=== PATIENT | female | born 1975 | race African-American/Black ===

== ENCOUNTER 2016-07-09 15:43 | Emergency (ER) | payer OTHER ==
[2016-07-09 15:54] VITALS: BP 156/84; PULSE 81; TEMP 98.1; BMI 39.9
--- NOTE | 2016-07-09 16:02 | PDOC ---
History of Present Illness - History of Present Illness Initial Comments: 07/09/16 17:00 The patient is a 41 year old female, with a significant past medical history of migraines, who presents to the emergency department with about 5 days of right lower quadrant pain and heavier than usual menstrual bleeding. She states that during her most recent (4 years ago) she was found to have fibroids, however, during a follow-up ultrasound shortly after giving , the fibroids were said to have resolved. She states her abdominal cramping and bleeding is more severe today than her usual experience with her menstrual cycle. The patient states her Special Procedures Nurse left the country and she is looking for a new Special Procedures Nurse. She denies chest pain, shortness of breath, headache and dizziness. She denies fever, chills, nausea, vomit, diarrhea and constipation. She denies dysuria, frequency, urgency and hematuria. Allergies: NKDA Past surgical history: sinus polyp removal <Alexia Hager - Last Filed: 07/09/16 18:07> <Silver Jacob - Last Filed: 07/09/16 18:42> - General Chief Complaint: Pain Stated Complaint: ABD PAIN Time Seen by Provider: 07/09/16 16:02 Past History <Alexia Hager - Last Filed: 07/09/16 18:07> - Past Medical History Anemia: Yes Asthma: No Cancer: No Cardiac Disorders: No CVA: No COPD: No CHF: No Dementia: No Diabetes: No GI Disorders: No Disorders: No HTN: No Hypercholesterolemia: No Liver Disease: No Suicide Attempt (Hx): No Seizures: No Thyroid Disease: No - Surgical History Abdominal Surgery: Yes (HERNIA SX) Appendectomy: No Cardiac Surgery: No Cholecystectomy: Yes Lung Surgery: No Neurologic Surgery: No Orthopedic Surgery: No - Reproductive History (#): 3 Para: 2 Therapeutic (s) & number: Yes Spontaneous : 0 - Immunization History Immunization Up to Date: Yes - Psycho/Social/Smoking Cessation Hx Anxiety: No Suicidal Ideation: No Smoking Status: No Smoking History: Never smoked Have you smoked in the past 12 months: No Number of Cigarettes Smoked Daily: 0 Information on smoking cessation initiated: No Hx Alcohol Use: No Drug/Substance Use Hx: No Substance Use Type: None Hx Substance Use Treatment: No <Silver Jacob - Last Filed: 07/09/16 18:42> - Past Medical History Allergies/Adverse Reactions: Allergies Allergy/AdvReac Type Severity Reaction Status Date / Time No Known Allergies Allergy Verified 07/09/16 15:51 Home Medications: Ambulatory Orders NK [No Known Home Medication] 12/03/15 Review of Systems - Review of Systems Able to Perform ROS?: Yes Comments:: 07/09/16 17:00 GENERAL/CONSTITUTIONAL: No fever or chills. No weakness. HEAD, EYES, EARS, NOSE AND THROAT: No change in vision. No ear pain or discharge. No sore throat. CARDIOVASCULAR: No chest pain or shortness of breath. RESPIRATORY: No cough, wheezing, or hemoptysis. GASTROINTESTINAL: (+) abdominal cramping. No nausea, vomiting, diarrhea or constipation. GENITOURINARY: No dysuria, frequency, or change in urination. REPRODUCTIVE: (+) heavy menstrual bleeding. MUSCULOSKELETAL: No joint or muscle swelling or pain. No neck or back pain. SKIN: No rash NEUROLOGIC: No headache, vertigo, loss of consciousness, or change in strength/ sensation. ENDOCRINE: No increased thirst. No abnormal weight change. HEMATOLOGIC/LYMPHATIC: No anemia, easy bleeding, or history of blood clots. ALLERGIC/IMMUNOLOGIC: No hives or skin allergy. <Alexia Hager - Last Filed: 07/09/16 18:07> *Physical Exam - Vital Signs Last Vital Signs Temp Pulse Resp BP Pulse Ox 98.1 F 81 18 156/84 100 07/09/16 15:52 07/09/16 15:52 07/09/16 15:52 07/09/16 15:52 07/09/16 15:52 - Physical Exam Comments: 07/09/16 17:01 GENERAL: Awake, alert, and fully oriented, in no acute distress HEAD: No signs of trauma EYES: PERRLA, EOMI, sclera anicteric, conjunctiva clear ENT: Auricles normal inspection, hearing grossly normal, nares patent, oropharynx clear without exudates. Moist mucosa NECK: Normal ROM, supple, no lymphadenopathy, JVD, or masses LUNGS: Breath sounds equal, clear to auscultation bilaterally. No wheezes, and no crackles HEART: Regular rate and rhythm, normal S1 and S2, no murmurs, rubs or gallops ABDOMEN: Soft, nontender, normoactive bowel sounds. No guarding, no rebound. No masses EXTREMITIES: Normal range of motion, no edema. No clubbing or cyanosis. No cords, erythema, or tenderness NEUROLOGICAL: Cranial nerves II through XII grossly intact. Normal speech, normal gait SKIN: Warm, Dry, normal turgor, no rashes or lesions noted. <Alexia Hager - Last Filed: 07/09/16 18:07> - Vital Signs Last Vital Signs Temp Pulse Resp BP Pulse Ox 98.1 F 81 18 156/84 100 07/09/16 15:52 07/09/16 15:52 07/09/16 15:52 07/09/16 15:52 07/09/16 15:52 <Silver Jacob - Last Filed: 07/09/16 18:42> ED Treatment Course - LABORATORY CBC & Chemistry Diagram: 07/09/16 16:40 07/09/16 16:40 - RADIOLOGY Radiograph Interpretation: 07/09/16 18:07 Transvaginal US was read by Dr. Cazares 18:02 Impression: Fibroid uterus. Mild thickening of the endometrial strope ant the fundus measuring 1/6 cm for which a follow-up US in 1st week of menses is needed. <Alexia Hager - Last Filed: 07/09/16 18:07> - LABORATORY CBC & Chemistry Diagram: 07/09/16 16:40 07/09/16 16:40 <Silver Jacob - Last Filed: 07/09/16 18:42> Medical Decision Making - Medical Decision Making 07/09/16 17:01 The patient is a 41 year old female with a PMHx of anemia who presents with abdominal cramping and heavy menstrual bleeding for the past 5 days. I will obtain CBC, CMP, urinalysis, ultrasound and type & screen, to rule out uterine fibroids <Alexia Hager - Last Filed: 07/09/16 18:07> *DC/Admit/Observation/Transfer - Attestations Scribe Attestion: 07/09/16 17:03 Documentation prepared by Alexia Hager, acting as medical hospital sales for Silver Jacob MD <Alexia Hager - Last Filed: 07/09/16 18:07> - Discharge Dispostion Admit: No - Attestations Physician Attestion: 07/09/16 16:02 I, Dr. Silver Jacob, attest that this document has been prepared under my direction and personally reviewed by me in its entirety. I further attest, that it accurately reflects all work, treatment, procedures and medical decision -making performed by me. <Silver Jacob - Last Filed: 07/09/16 18:42> Diagnosis at time of Disposition: Dysfunctional uterine bleeding Uterine leiomyoma Qualifiers: Uterine leiomyoma location: unspecified location Qualified Code(s): D25.9 - Leiomyoma of uterus, unspecified Anemia Qualifiers: Iron deficiency anemia type: chronic blood loss - Discharge Dispostion Disposition: HOME Condition at time of disposition: Good - Referrals Referrals: Chris Durbin [Primary Care Provider] - Michele Flannery MD [Staff Physician] - Katerina Ramirez MD [Staff Physician] - - Patient Instructions Printed Discharge Instructions: Heavy Menstrual Bleeding Additional Instructions: Call Dr. Ramirez or Dr Flannery first thing tomorrow. Return to us if problems. Best- Dr. Silver Jacob
[2016-07-09 17:05] LABS: BASOPHIL 0.4 % (0-2.0); EOSINOPHIL 1.4 % (0-4.5); MCH 20.5 pg (25.7-33.7); MCHC 32.3 g/dl (32.0-36.0); MEAN CELL VOLUME 63.6 fl (80-96); MEAN PLT VOLUME 8.9 fl (7.5-11.1); NEUTROPHILS 66.7 % (42.8-82.8); PLATELET COUNT 321 K/MM3 (134-434); RDW 21.3 % (11.6-15.6)
[2016-07-09 17:23] LABS: ALBUMIN 3.3 g/dl (3.4-5.0); ANION GAP 9 (8-16); BILIRUBIN,TOTAL 0.3 mg/dL (0.2-1.0); CALCIUM 8.9 mg/dL (8.5-10.1); CO2 26 mmol/L (21-32); CREATININE 0.6 mg/dL (0.55-1.02); GLUCOSE,RANDOM 85 mg/dL (74-106); SGOT/AST 10 U/L (15-37); SGPT/ALT 11 U/L (12-78); TOT PROT 7.5 g/dl (6.4-8.2)
[2016-07-09 17:25] LABS: ALK PHOS 103 U/L (45-117)
[2016-07-09 19:44] LABS: HYPOCHROMIA 3+; PLATELET ESTIMATE ADEQUATE (NORMAL)
[2016-07-09 19:45] LABS: ANISOCYTOSIS 2+; MICROCYTOSIS 2+; OVALOCYTES 1+; TARGET CELLS 1+
== END 2016-07-09 19:13 | disposition home or self-care (01) ==
LOC: JER 15:43
DX: N93.8 Other specified abnormal uterine and vaginal bleeding (principal); D25.9 Leiomyoma of uterus, unspecified; D50.0 Iron deficiency anemia secondary to blood loss (chronic)
CPT/HCPCS: 36415; 76830-TC; 80053; 85025; 86850; 86900; 86901; 99282-25

== ENCOUNTER 2017-02-03 18:25 | Emergency (ER) | payer OTHER ==
[2017-02-03 18:30] VITALS: TEMP 98.6; BMI 41.5
[2017-02-03 20:12] LABS: ALBUMIN 3.2 g/dl (3.4-5.0); ANION GAP 6 (8-16); BILIRUBIN,TOTAL 0.3 mg/dL (0.2-1.0); CALCIUM 8.5 mg/dL (8.5-10.1); CO2 27 mmol/L (21-32); CREATININE 0.6 mg/dL (0.55-1.02); GLUCOSE,RANDOM 78 mg/dL (74-106); SGOT/AST 6 U/L (15-37); SGPT/ALT 12 U/L (12-78); TOT PROT 7.5 g/dl (6.4-8.2)
[2017-02-03 20:13] LABS: ALK PHOS 101 U/L (45-117)
[2017-02-03 20:24] LABS: BASOPHIL 0.4 % (0-2.0); EOSINOPHIL 2.1 % (0-4.5); MCH 21.6 pg (25.7-33.7); MCHC 32.4 g/dl (32.0-36.0); MEAN CELL VOLUME 66.5 fl (80-96); MEAN PLT VOLUME 9.1 fl (7.5-11.1); NEUTROPHILS 63.4 % (42.8-82.8); PLATELET COUNT 310 K/MM3 (134-434); RDW 20.1 % (11.6-15.6); WHITE BLOOD COUNT 9.3 K/mm3 (4.0-10.0)
[2017-02-03 21:27] VITALS: BP 154/89; PULSE 84
--- NOTE | 2017-02-03 21:28 | PDOC ---
History of Present Illness - General Chief Complaint: Vaginal Bleeding Stated Complaint: VAGINAL BLEEDING Time Seen by Provider: 02/03/17 18:53 Past History - Past Medical History Allergies/Adverse Reactions: Allergies Allergy/AdvReac Type Severity Reaction Status Date / Time No Known Allergies Allergy Verified 02/03/17 18:30 Home Medications: Ambulatory Orders Ferrous Sulfate 325 mg PO BID 02/03/17 Anemia: Yes Asthma: No Cancer: No Cardiac Disorders: No CVA: No COPD: No CHF: No Dementia: No Diabetes: No GI Disorders: No Disorders: No HTN: No Hypercholesterolemia: No Liver Disease: No Seizures: No Thyroid Disease: No - Surgical History Abdominal Surgery: Yes (HERNIA SX) Appendectomy: No Cardiac Surgery: No Cholecystectomy: Yes Lung Surgery: No Neurologic Surgery: No Orthopedic Surgery: No - Reproductive History (#): 3 Para: 2 Therapeutic (s) & number: Yes Spontaneous : 0 - Immunization History Immunization Up to Date: Yes - Suicide/Smoking/Psychosocial Hx Smoking Status: No Smoking History: Never smoked Have you smoked in the past 12 months: No Number of Cigarettes Smoked Daily: 0 Hx Alcohol Use: No Drug/Substance Use Hx: No Substance Use Type: None Hx Substance Use Treatment: No *Physical Exam - Vital Signs Last Vital Signs Temp Pulse Resp BP Pulse Ox 98.6 F 102 H 20 142/98 100 02/03/17 18:26 02/03/17 18:26 02/03/17 18:26 02/03/17 20:09 02/03/17 18:26 ED Treatment Course - LABORATORY CBC & Chemistry Diagram: 02/03/17 19:00 02/03/17 19:50 - ADDITIONAL ORDERS Additional order review: Laboratory Results 02/03/17 02/03/17 02/03/17 19:50 19:23 19:00 Sodium 139 Potassium 3.6 Chloride 106 Carbon Dioxide 27 Anion Gap 6 L BUN 5 L Creatinine 0.6 Creat Clearance w eGFR > 60 Random Glucose 78 Calcium 8.5 Total Bilirubin 0.3 AST 6 L D ALT 12 Alkaline Phosphatase 101 Total Protein 7.5 Albumin 3.2 L Beta HCG, Quant < 1.0 Blood Type O POSITIVE Antibody Screen Negative 02/03/17 19:00 RBC 4.48 MCV 66.5 L MCHC 32.4 RDW 20.1 H MPV 9.1 Neutrophils % 63.4 Lymphocytes % 24.7 Monocytes % 9.4 Eosinophils % 2.1 Basophils % 0.4 *DC/Admit/Observation/Transfer Diagnosis at time of Disposition: Dysfunctional uterine hemorrhage Anemia Qualifiers: Anemia type: iron deficiency Iron deficiency anemia type: chronic blood loss Qualified Code(s): D50.0 - Iron deficiency anemia secondary to blood loss ( chronic); D50.0 - Iron deficiency anemia secondary to blood loss (chronic) - Discharge Dispostion Disposition: HOME Condition at time of disposition: Stable - Patient Instructions Printed Discharge Instructions: DI for Vaginal Bleeding, DI for Iron Deficiency Anemia-Adult Additional Instructions: please keep your appointment with your preparation center coordinator
[2017-02-03 21:54] LABS: ANISOCYTOSIS 1+; HYPOCHROMIA 2+; PLATELET ESTIMATE ADEQUATE (NORMAL); POLYCHROMASIA 1+
[2017-02-03 21:55] LABS: MACROCYTOSIS 1+; MICROCYTOSIS 2+
--- NOTE | 2017-02-03 22:43 | PDOC ---
History of Present Illness - General History Source: Patient Exam Limitations: No Limitations - History of Present Illness Initial Comments: 02/03/17 22:47 The patient is a 41 year old female with a significant past medical history of anemia (on iron supplements) who presents to the ED with 3 days of vaginal bleeding. The patient reports she got her IUD removed on Saturday by her ROUTE INSPECTOR secondary to having [place] surgery next month. Patient reports vaginal bleeding since having her IUD removed. She states she bleeds through 3 pads an hour. She reports noticing 3 blood clots in her pad earlier today. Patient also reports dizziness associated with present symptoms. Denies fever or chills. Denies abdominal cramping, nausea, vomiting, or diarrhea. Denies chest pain or shortness of breath. Denies dysuria. Denies any other symptoms. <James Alonzo - Last Filed: 02/03/17 22:47> - General History Source: Patient Exam Limitations: No Limitations - History of Present Illness Travel History: No Timing/Duration: reports: changing over time Quality: reports: mild Pain Radiation: reports: no radiation Activities at Onset: reports: none Aggravating Factors: improves with: None Alleviating Factors: improves with: None (pt has complaint of vagnal bleeding that occurred after the removal of her IUD last Saturday) <Nandini Chung - Last Filed: 02/03/17 22:51> - General Chief Complaint: Vaginal Bleeding Stated Complaint: VAGINAL BLEEDING Time Seen by Provider: 02/03/17 18:53 Past History <James Alonzo - Last Filed: 02/03/17 22:47> - Past Medical History Anemia: Yes Asthma: No Cancer: No Cardiac Disorders: No CVA: No COPD: No CHF: No Dementia: No Diabetes: No GI Disorders: No Disorders: No HTN: No Hypercholesterolemia: No Liver Disease: No Seizures: No Thyroid Disease: No - Surgical History Abdominal Surgery: Yes (HERNIA SX) Appendectomy: No Cardiac Surgery: No Cholecystectomy: Yes Lung Surgery: No Neurologic Surgery: No Orthopedic Surgery: No - Reproductive History (#): 3 Para: 2 Therapeutic (s) & number: Yes Spontaneous : 0 - Immunization History Immunization Up to Date: Yes - Suicide/Smoking/Psychosocial Hx Smoking Status: No Smoking History: Never smoked Have you smoked in the past 12 months: No Number of Cigarettes Smoked Daily: 0 Hx Alcohol Use: No Drug/Substance Use Hx: No Substance Use Type: None Hx Substance Use Treatment: No <Nandini Chung - Last Filed: 02/03/17 22:51> - Past Medical History Allergies/Adverse Reactions: Allergies Allergy/AdvReac Type Severity Reaction Status Date / Time No Known Allergies Allergy Verified 02/03/17 18:30 Home Medications: Ambulatory Orders Ferrous Sulfate 325 mg PO BID 02/03/17 Review of Systems - Review of Systems Able to Perform ROS?: Yes Comments:: 02/03/17 22:47 CONSTITUTIONAL: No reported: Fever, Chills, Diaphoresis, Generalized Weakness, Malaise, Loss of Appetite HEENT: No reported: Rhinorrhea, Nasal Congestion, Throat Pain, Throat Swelling, Difficulty Swallowing, Mouth Swelling, Ear Pain, Eye Pain, Visual Changes CARDIOVASCULAR: No reported: Chest Pain, Syncope, Palpitations, Irregular Heart Rate, Lightheadedness, Peripheral Edema RESPIRATORY: No reported: Cough, Shortness of Breath, SOB with Exertion, Orthopnea, Wheezing , Stridor, Hemoptysis GASTROINTESTINAL: No reported: Abdominal pain, Abdominal Distension, Nausea, Vomiting, Diarrhea, Constipation, Melena, Hematochezia GENITOURINARY: + vaginal bleeding No reported: Dysuria, Frequency, Urgency, Hesitancy, Flank Pain, Genital Pain MUSCULOSKELETAL: No reported: Myalgia, Arthralgia, Joint Swelling, Back pain, Neck Pain SKIN: No reported: Rash, Itching, Pallor HEMEATOLOGIC/IMMUNOLOGIC: No reported: Easy Bleeding, Easy Bruising, Lymphadenopathy, Frequent infections ENDOCRINE: No reported: Unexplained Weight Gain, Unexplained Weight Loss, Heat Intolerance , Cold Intolerance NEUROLOGIC: No reported: Headache, Focal Weakness, Paresthesias, Vertigo, Lightheadedness, Unsteady Gait, Seizure, Mental Status Changes, Incontinence PSYCHIATRIC: No reported: Anxiety, Depression All Other Systems: Reviewed and Negative <James Alonzo - Last Filed: 02/03/17 22:47> - Review of Systems Able to Perform ROS?: Yes Is the patient limited Fijian proficient: No Constitutional: No: Symptoms Reported, See HPI, Chills, Diaphoresis, Fever, Loss of Appetite, Malaise, Night Sweats, Weakness, Weight Stable, Unintentional Wgt. Loss, Unexplained wgt Loss, Other HEENTM: No: Symptoms Reported, See HPI, Eye Pain, Blurred Vision, Tearing, Recent change in vision, Double Vision, Cataracts, Ear Pain, Ocular Prothesis, Ear Discharge, Nose Pain, Nose Congestion, Tinnitus, Nose Bleeding, Hearing Loss , Throat Pain, Throat Swelling, Mouth Pain, Dental Problems, Difficulty Swallowing, Mouth Swelling, Other Respiratory: No: Symptoms reported, See HPI, Cough, Orthopnea, Shortness of Breath, SOB with Exertion, SOB at Rest, Stridor, Wheezing, Productive cough, Hemoptysis, Other Cardiac (ROS): No: Symptoms Reported, See HPI, Chest Pain, Edema, Irregular Heart Rate, Lightheadedness, Palpitations, Syncope, Chest Tightness, Other ABD/GI: No: Symptoms Reported, See HPI, Abdominal Distended, Abd. Pain w/ defecation, Blood Streaked Bowels, Constipated, Diarrhea, Difficulty Swallowing , Nausea, Poor Appetite, Poor Fluid Intake, Rectal Bleeding, Vomiting, Indigestion, Abdominal cramping, Tarry Stools, Other : Yes: Other (vaginal bleeding) Musculoskeletal: No: Symptoms Reported, See HPI, Back Pain, Gout, Joint Pain, Joint Swelling, Muscle Pain, Muscle Weakness, Neck Pain, Joint Stiffness, Other Integumentary: No: Symptoms Reported, See HPI, Bruising, Change in Color, Change in Hair/Nails, Dryness, Erythema, Flushing, Lesions, Lumps, Pallor, Pruritus, Rash, Sweating, Other Psychiatric: No: Anxiety, Depression, Frequent Crying, Stressors, Sleep Pattern Change, Emotional Problems, Mood Swings, Change in Appetite, Other <Nandini Chung - Last Filed: 02/03/17 22:51> *Physical Exam - Vital Signs Last Vital Signs Temp Pulse Resp BP Pulse Ox 98.6 F 84 18 154/89 99 02/03/17 18:26 02/03/17 21:26 02/03/17 21:26 02/03/17 21:26 02/03/17 21:26 - Physical Exam Comments: 02/03/17 22:47 GENERAL: Well developed, well nourished. Awake and alert. No acute distress. HEENT: Normocephalic, atraumatic. PERRLA, EOMI. No conjunctival pallor. Sclera are non- icteric. Moist mucous membranes. Oropharynx is clear. NECK: Supple. Full ROM. No JVD. Carotid pulses 2+ and symmetric, without bruits. No thyromegaly. No lymphadenopathy. CARDIOVASCULAR: Regular rate and rhythm. No murmurs, rubs, or gallops. Distal pulses are 2+ and symmetric. PULMONARY: No evidence of respiratory distress. Lungs clear to auscultation bilaterally. No wheezing, rales or rhonchi. ABDOMINAL: Soft. Non-tender. Non-distended. No rebound or guarding. No organomegaly. Normoactive bowel sounds. MUSCULOSKELETAL Normal range of motion at all joints. No bony deformities or tenderness. No CVA tenderness. EXTREMITIES: No cyanosis. No clubbing. No edema. No calf tenderness. VAGINAL: + moderate blood in vaginal vault. No blood clots. Os is closed. SKIN: Warm and dry. Normal capillary refill. No rashes. No jaundice. NEUROLOGICAL: Alert, awake, appropriate. Cranial nerves 2-12 intact. No deficits to light touch and temperature in face, upper extremities and lower extremities. No motor deficits in the in face, upper extremities and lower extremities. Normoreflexic in the upper and lower extremities. Normal speech. Toes are down- going bilaterally. Gait is normal without ataxia. PSYCHIATRIC: Cooperative. Good eye contact. Appropriate mood and affect. <James Alonzo - Last Filed: 02/03/17 22:47> - Vital Signs Last Vital Signs Temp Pulse Resp BP Pulse Ox 98.6 F 84 18 154/89 99 02/03/17 18:26 02/03/17 21:26 02/03/17 21:26 02/03/17 21:26 02/03/17 21:26 - Physical Exam General Appearance: Yes: Nourished, Appropriately Dressed HEENT: positive: Normal Voice Neck: positive: Supple Respiratory/Chest: positive: Normal Breath Sounds Cardiovascular: positive: Regular Rhythm, Regular Rate Female Pelvic Exam: positive: vaginal bleeding (os closed, no clots but there was moderate amt blood in vaginal vault) Gastrointestinal/Abdominal: positive: Soft Musculoskeletal: positive: Normal Inspection Extremity: positive: Normal Inspection Integumentary: positive: Normal Color, Warm Neurologic: positive: Fully Oriented, Alert, Motor Strength 5/5 <Nandini Chung - Last Filed: 02/03/17 22:51> ED Treatment Course - LABORATORY CBC & Chemistry Diagram: 02/03/17 19:00 02/03/17 19:50 - ADDITIONAL ORDERS Additional order review: Laboratory Results 02/03/17 02/03/17 02/03/17 19:50 19:23 19:00 Sodium 139 Potassium 3.6 Chloride 106 Carbon Dioxide 27 Anion Gap 6 L BUN 5 L Creatinine 0.6 Creat Clearance w eGFR > 60 Random Glucose 78 Calcium 8.5 Total Bilirubin 0.3 AST 6 L D ALT 12 Alkaline Phosphatase 101 Total Protein 7.5 Albumin 3.2 L Beta HCG, Quant < 1.0 Blood Type O POSITIVE Antibody Screen Negative 02/03/17 19:00 RBC 4.48 MCV 66.5 L MCHC 32.4 RDW 20.1 H MPV 9.1 Neutrophils % 63.4 Lymphocytes % 24.7 Monocytes % 9.4 Eosinophils % 2.1 Basophils % 0.4 <James Alonzo - Last Filed: 02/03/17 22:47> - LABORATORY CBC & Chemistry Diagram: 02/03/17 19:00 02/03/17 19:50 - ADDITIONAL ORDERS Additional order review: Laboratory Results 02/03/17 02/03/17 02/03/17 19:50 19:23 19:00 Sodium 139 Potassium 3.6 Chloride 106 Carbon Dioxide 27 Anion Gap 6 L BUN 5 L Creatinine 0.6 Creat Clearance w eGFR > 60 Random Glucose 78 Calcium 8.5 Total Bilirubin 0.3 AST 6 L D ALT 12 Alkaline Phosphatase 101 Total Protein 7.5 Albumin 3.2 L Beta HCG, Quant < 1.0 Blood Type O POSITIVE Antibody Screen Negative 02/03/17 19:00 RBC 4.48 MCV 66.5 L MCHC 32.4 RDW 20.1 H MPV 9.1 Neutrophils % 63.4 Lymphocytes % 24.7 Monocytes % 9.4 Eosinophils % 2.1 Basophils % 0.4 <Nandini Chung - Last Filed: 02/03/17 22:51> Medical Decision Making - Medical Decision Making 02/03/17 22:49 spoke w pt and she has a long h/o anemia and tonight s hemoglobin of 9 and hematocrit of 29 is within her usual readings. negative -pt will follow up with her PATTERN KEEPER <Nandini Chung - Last Filed: 02/03/17 22:51> *DC/Admit/Observation/Transfer <James Alonzo - Last Filed: 02/03/17 22:47> <Nandini Chung - Last Filed: 02/03/17 22:51> Diagnosis at time of Disposition: Dysfunctional uterine hemorrhage Anemia Qualifiers: Anemia type: iron deficiency Iron deficiency anemia type: chronic blood loss Qualified Code(s): D50.0 - Iron deficiency anemia secondary to blood loss ( chronic) - Discharge Dispostion Disposition: HOME Condition at time of disposition: Stable - Referrals Referrals: Chris Durbin [Primary Care Provider] - - Patient Instructions Printed Discharge Instructions: DI for Iron Deficiency Anemia-Adult, DI for Vaginal Bleeding Additional Instructions: please keep your appointment with your manual control auger press operator - Post Discharge Activity
== END 2017-02-03 21:28 | disposition home or self-care (01) ==
LOC: JER 18:25
DX: N93.8 Other specified abnormal uterine and vaginal bleeding (principal); D50.0 Iron deficiency anemia secondary to blood loss (chronic)
CPT/HCPCS: 36415; 80053; 84702; 85025; 86850; 86900; 86901; 99282-25

== ENCOUNTER 2018-10-05 13:38 | Emergency (ER) | payer OTHER ==
[2018-10-05 13:55] VITALS: TEMP 99; BMI 41.5
[2018-10-05] MEDS ORDERED: morphine CARPU-JECT 2 MG/1 ML DISP.SYRIN IVPUSH ONE (14:04)
--- NOTE | 2018-10-05 14:16 | PDOC ---
History of Present Illness - General Chief Complaint: Pain Stated Complaint: ABD PAIN Time Seen by Provider: 10/05/18 13:56 History Source: Patient Exam Limitations: No Limitations - History of Present Illness Travel History: No Initial Comments: 10/05/18 14:06 43-year-old female with history of fibroids and fiber removal in 2016 presents to ED with concern of painful menstrual cycle which began on October 02. Patient states has been taking Motrin with no effect and so decided come to the ER today. Has no complaints of dysuria, fever, chills diarrhea recent travel recent illness. Patient states is currently is not anemic since fibroid removal. Timing/Duration: reports: constant Quality: reports: mild, moderate, cramping Abdominal Pain Onset Location: reports: suprapubic Pain Radiation: reports: no radiation Activities at Onset: reports: none Aggravating Factors: improves with: None Alleviating Factors: improves with: None Past History - Travel Traveled outside of the country in the last 30 days: No Close contact w/someone who was outside of country & ill: No - Past Medical History Allergies/Adverse Reactions: Allergies Allergy/AdvReac Type Severity Reaction Status Date / Time No Known Allergies Allergy Verified 10/05/18 13:52 Home Medications: Ambulatory Orders Ferrous Sulfate 325 mg PO BID 02/03/17 Anemia: Yes Asthma: No Cancer: No Cardiac Disorders: No CVA: No COPD: No CHF: No Dementia: No Diabetes: No GI Disorders: No Disorders: No HTN: No Hypercholesterolemia: No Liver Disease: No Seizures: No Thyroid Disease: No - Surgical History Abdominal Surgery: Yes (HERNIA SX) Appendectomy: No Cardiac Surgery: No Cholecystectomy: Yes Lung Surgery: No Neurologic Surgery: No Orthopedic Surgery: No - Reproductive History (#): 3 Para: 2 Therapeutic (s) & number: Yes Spontaneous : 0 - Immunization History Immunization Up to Date: Yes - Suicide/Smoking/Psychosocial Hx Smoking Status: No Smoking History: Never smoked Have you smoked in the past 12 months: No Number of Cigarettes Smoked Daily: 0 Information on smoking cessation initiated: No Hx Alcohol Use: No Drug/Substance Use Hx: No Substance Use Type: None Hx Substance Use Treatment: No Patient Lives Alone: No Lives with/in: spouse/SO Review of Systems - Review of Systems Able to Perform ROS?: Yes Constitutional: No: Symptoms Reported HEENTM: No: Symptoms Reported Respiratory: No: Symptoms reported Cardiac (ROS): No: Symptoms Reported ABD/GI: Yes: Abdominal cramping : Yes: Discharge (bleeding w/ clots) Musculoskeletal: No: Symptoms Reported Integumentary: No: Symptoms Reported Neurological: No: Symptoms reported Hematologic/Lymphatic: No: Symptoms Reported *Physical Exam - Vital Signs Last Vital Signs Temp Pulse Resp BP Pulse Ox 99 F 94 H 18 129/91 97 10/05/18 13:52 10/05/18 13:52 10/05/18 13:52 10/05/18 13:52 10/05/18 13:52 - Physical Exam General Appearance: Yes: Nourished, Appropriately Dressed. No: Apparent Distress HEENT: negative: Pale Conjunctivae Respiratory/Chest: positive: Lungs Clear, Normal Breath Sounds. negative: Respiratory Distress, Accessory Muscle Use Cardiovascular: positive: Regular Rhythm, Regular Rate. negative: Murmur Female Pelvic Exam: positive: vaginal bleeding (dark red with small clots) Gastrointestinal/Abdominal: positive: Normal Bowel Sounds, Soft, Tenderness ( midsuprapubic) Musculoskeletal: negative: CVA Tenderness Extremity: positive: Normal Inspection Integumentary: positive: Normal Color, Warm, Moist Neurologic: positive: Motor Strength 5/5 (ambulatory) ED Treatment Course - LABORATORY CBC & Chemistry Diagram: 10/05/18 14:22 10/05/18 14:22 - RADIOLOGY Radiology Studies Ordered: Category Date Time Status TRANSVAGINAL ULTRASOUND US [US] Stat Ultrasound 10/05/18 13:57 Ordered Medical Decision Making - Medical Decision Making 10/05/18 14:09 CC: low abd pain with heavy vag bleeding/clots x 3 days. Hx fibroids with removal in 2017. ANVILSMITH has discussed hysterctomy due to heavy and painful menstrual cycle Exam: lower mid suprapubic tenderness with vag bleeding and clots Plan: labs, urine, ms04, and u/s 10/05/18 15:46 Laboratory Tests 10/05/18 10/05/18 10/05/18 14:22 14:22 14:22 WBC 7.9 Hgb 8.1 L Hct 26.0 L Plt Count 383 D Sodium 140 Potassium 3.8 Chloride 109 H Carbon Dioxide 28 Anion Gap 3 L BUN 6.2 L Creatinine 0.7 Random Glucose 91 AST 11 L ALT 12 L Urine Blood 3+ H Ur Leukocyte Esterase Trace Urine WBC (Auto) 5 Urine HCG, Qual Negative Pt states mod relief with morphine. Pt states will start her iron tablets since she stopped taking them about 6 months ago because of constipation and abd pain when taking it 10/05/18 15:53 Ultrasound shows no Leoimyoma as seen previously from June 2016 ultrasound. The endometrial slightly thickened at 0.9 cm which may be on physiological basis. Patient is currently menstrating. Otherwise no free intraperitoneal fluid *DC/Admit/Observation/Transfer Diagnosis at time of Disposition: Dysfunctional uterine hemorrhage - Discharge Dispostion Disposition: HOME Condition at time of disposition: Improved - Referrals Referrals: Chris Durbin [Primary Care Provider] - - Patient Instructions Printed Discharge Instructions: DI for Vaginal Bleeding Additional Instructions: Please follow up with your ANVILSMITH. Start your Iron pills once a day. Take percocet as needed for pain - Post Discharge Activity
[2018-10-05] MEDS ORDERED: MORPHINE SULFATE 2 MG/ML VIAL ONE (14:25)
[2018-10-05 14:44] LABS: BASO % 0.8 % (0-2.0); EOS % 1.3 % (0-4.5); HEMOGLOBIN 8.1 GM/dL (10.7-15.3); LYMPH % 19.9 % (8-40); MCHC 31.3 g/dl (32.0-36.0); MEAN PLT VOLUME 8.5 fl (7.5-11.1); MONO % 9.1 % (3.8-10.2); NEUT % 68.9 % (42.8-82.8); PLATELET COUNT 383 K/MM3 (134-434); RBC 4.41 M/mm3 (3.60-5.2); RDW 20.4 % (11.6-15.6); WHITE BLOOD COUNT 7.9 K/mm3 (4.0-10.0)
[2018-10-05 15:01] LABS: MCH 18.5 pg (25.7-33.7)
[2018-10-05 15:02] LABS: ALBUMIN 3.5 g/dl (3.4-5.0); BILIRUBIN,TOTAL 0.4 mg/dL (0.2-1); BLOOD UREA NITROGEN 6.2 mg/dL (7-18); CALCIUM 8.8 mg/dL (8.5-10.1); CREATININE 0.7 mg/dL (0.55-1.3); POTASSIUM 3.8 mmol/L (3.5-5.1)
[2018-10-05 15:25] LABS: HCG,QUALITATIVE URINE Negative
[2018-10-05 15:31] LABS: EPI CELLS 2.2 /HPF (0-5/HPF); HYALINE CASTS 3 /lpf (0-8); URINE APPEARANCE CLEAR; URINE BACTERIA 3.4 /hpf (NEGATIVE); URINE BILIRUBIN NEGATIVE (NEGATIVE); URINE COLOR YELLOW; URINE GLUCOSE (UA) NEGATIVE (NEGATIVE); URINE KETONE NEGATIVE (NEGATIVE); URINE LEUK ESTERASE TRACE (NEGATIVE); URINE NITRITE NEGATIVE (NEGATIVE); URINE PROTEIN NEGATIVE (NEGATIVE); URINE RBC 869 /hpf (0-4); URINE UROBILINOGEN 0.2 mg/dL (0.2-1.0); URINE WBC 5 /hpf (0-5)
[2018-10-05 16:30] VITALS: BP 132/87; PULSE 88
[2018-10-05 17:43] LABS: ANISOCYTOSIS 1+
[2018-10-05 17:44] LABS: MACROCYTOSIS 1+; PLATELET ESTIMATE ADEQUATE
== END 2018-10-05 16:30 | disposition home or self-care (01) ==
LOC: JER 13:38
PROC: 3E033NZ Introduction of Analgesics, Hypnotics, Sedatives into Peripheral Vein, Percutaneous Approach (ICD-10-PCS; principal; 2018-10-05)
DX: N93.8 Other specified abnormal uterine and vaginal bleeding (principal); N94.6 Dysmenorrhea, unspecified
CPT/HCPCS: 36415; 76830-TC; 80053; 81003; 84703; 85025; 96374; 99283-25

== ENCOUNTER 2018-10-31 01:05 | Emergency (ER) | payer OTHER ==
[2018-10-31 01:34] VITALS: BP 148/79; PULSE 88; TEMP 99.6; BMI 38.9
--- NOTE | 2018-10-31 02:03 | PDOC ---
History of Present Illness - General Chief Complaint: Pain, Acute Stated Complaint: CRAMPS Time Seen by Provider: 10/31/18 02:01 - History of Present Illness Initial Comments: 43yo F with PMH of fibroids, fibromyalgia, anemia, herniated disc presenting with RLQ pain x 2 days. Patient states this is consistent with her fibroid pain. She has this same pain every month, always while she is menstruating. She rates it 8/10 and describes it as "sharp" and "crampy". No nausea or vomiting. Last bowel movement was today and was a loose brown stool without blood. Patient typically has loose stools when she is menstruating. History of surgeries include fibroid removal in 2017 and . LMP started yesterday for which she has been using about three regular-size pads per day. Patient recently changed to a new locomotive engineer electric group because her former locomotive engineer electric retired and voices displeasure with her current care. Multiple family members have undergone hysterectomies for pain related to fibroids. No fevers, chills, chest pain, or shortness of breath. PCP: Dr. Durbin drama director: does not remember the name Past History - Past Medical History Allergies/Adverse Reactions: Allergies Allergy/AdvReac Type Severity Reaction Status Date / Time No Known Allergies Allergy Verified 10/31/18 01:31 Home Medications: Ambulatory Orders NK [No Known Home Medication] 10/31/18 Anemia: Yes Asthma: No Cancer: No Cardiac Disorders: No CVA: No COPD: No CHF: No Dementia: No Diabetes: No GI Disorders: No Disorders: No HTN: No Hypercholesterolemia: No Liver Disease: No Seizures: No Thyroid Disease: No - Surgical History Abdominal Surgery: Yes (HERNIA SX) Appendectomy: No Cardiac Surgery: No Cholecystectomy: Yes Lung Surgery: No Neurologic Surgery: No Orthopedic Surgery: No - Reproductive History (#): 3 Para: 2 Therapeutic (s) & number: Yes Spontaneous : 0 - Immunization History Immunization Up to Date: Yes - Suicide/Smoking/Psychosocial Hx Smoking Status: No Smoking History: Never smoked Have you smoked in the past 12 months: No Number of Cigarettes Smoked Daily: 0 Information on smoking cessation initiated: No Hx Alcohol Use: No Drug/Substance Use Hx: No Substance Use Type: None Hx Substance Use Treatment: No Review of Systems - Review of Systems Comments:: Constitutional: no fever, no chills HEENT: no throat pain, no dysphagia Cardiovascular: no chest pain, no palpitations Respiratory: no cough, no shortness of breath Gastrointestinal: +abdominal pain, no nausea Genitourinary: no dysuria, no frequency Musculoskeletal: no myalgia, no arthralgia Skin: no rash, no itching Neurologic: no headache, no weakness *Physical Exam - Vital Signs Last Vital Signs Temp Pulse Resp BP Pulse Ox 99.6 F 88 18 148/79 99 10/31/18 01:31 10/31/18 01:31 10/31/18 01:31 10/31/18 01:10/31/18 01:31 - Physical Exam Comments: General: Awake, alert, and fully oriented, anxious, tearful during history- taking Head: No signs of trauma Eyes: EOMI, sclera anicteric ENT: Moist mucus membranes Neck: Normal ROM, supple Lungs: Lungs clear, Normal breath sounds Cardio: Regular rhythm, S1 and S2 present Abdomen: Tender to palpation in the RLQ. No guarding, no rebound, no masses Extremities: Normal range of motion, Distal pulses present SKIN: Warm, Dry, normal turgor Neurologic: Cranial nerves II through XII grossly intact. Normal speech ED Treatment Course - LABORATORY CBC & Chemistry Diagram: 10/31/18 03:40 10/31/18 03:40 Medical Decision Making - Medical Decision Making 43yo F with PMH of fibroids, fibromyalgia, anemia, herniated disc presenting with RLQ pain x 2 days. DDX including but not limited to fibroids, appendicitis, UTI, pyelonephritis, nephrolithiasis Labs, CTAP Ofirmev, Fluids 10/31/18 02:02 CBC WBC 10.1 K/mm3 (4.0-10.0) H 10/31/18 03:40 RBC 4.74 M/mm3 (3.60-5.2) 10/31/18 03:40 Hgb 9.0 GM/dL (10.7-15.3) L 10/31/18 03:40 Hct 28.8 % (32.4-45.2) L 10/31/18 03:40 MCV 60.8 fl (80-96) L 10/31/18 03:40 MCH 18.9 pg (25.7-33.7) L 10/31/18 03:40 MCHC 31.1 g/dl (32.0-36.0) L 10/31/18 03:40 RDW 21.1 % (11.6-15.6) H 10/31/18 03:40 Plt Count 337 K/MM3 (134-434) 10/31/18 03:40 MPV 9.1 fl (7.5-11.1) 10/31/18 03:40 Absolute Neuts (auto) 6.7 K/mm3 (1.5-8.0) 10/31/18 03:40 Neutrophils % 66.6 % (42.8-82.8) 10/31/18 03:40 Lymphocytes % 21.9 % (8-40) 10/31/18 03:40 Monocytes % 9.9 % (3.8-10.2) 10/31/18 03:40 Eosinophils % 1.2 % (0-4.5) 10/31/18 03:40 Basophils % 0.4 % (0-2.0) 10/31/18 03:40 Nucleated RBC % 0 % (0-0) 10/31/18 03:40 Mild leukocytosis Anemia, hgb at patient's baseline CMP Sodium 140 mmol/L (136-145) 10/31/18 03:40 Potassium 3.6 mmol/L (3.5-5.1) 10/31/18 03:40 Chloride 105 mmol/L (98-107) 10/31/18 03:40 Carbon Dioxide 28 mmol/L (21-32) 10/31/18 03:40 Anion Gap 7 MMOL/L (8-16) L 10/31/18 03:40 BUN 5.0 mg/dL (7-18) L 10/31/18 03:40 Creatinine 0.7 mg/dL (0.55-1.3) 10/31/18 03:40 Est GFR (CKD-EPI)AfAm 123.86 10/31/18 03:40 Est GFR (CKD-EPI)NonAf 106.87 10/31/18 03:40 Random Glucose 98 mg/dL (74-106) 10/31/18 03:40 Calcium 9.0 mg/dL (8.5-10.1) 10/31/18 03:40 Total Bilirubin 0.3 mg/dL (0.2-1) 10/31/18 03:40 AST 13 U/L (15-37) L 10/31/18 03:40 ALT 13 U/L (13-61) 10/31/18 03:40 Alkaline Phosphatase 98 U/L (45-117) 10/31/18 03:40 Total Protein 8.2 g/dl (6.4-8.2) 10/31/18 03:40 Albumin 3.6 g/dl (3.4-5.0) 10/31/18 03:40 Electrolytes unremarkable Cr normal UA with 3+ blood. Patient is currently menstruating. Pain is improved, now rated 6/10. CTAP: "No bowel obstruction, colitis, diverticulitis, free fluid or free air. Appendix not seen. Unremarkable pancreas and kidneys. Cholecystectomy. Minimal splenomegaly. Enlarged leiomyomatous uterus." 10/31/18 06:27 Patient's pain is likely due to her leiomyomas that become painful in accordance with hormonal changes. She would likely benefit from hysterectomy which can be performed on an outpatient basis. Patient discharged with locomotive engineer electric referral *DC/Admit/Observation/Transfer Diagnosis at time of Disposition: Uterine fibroid Qualifiers: Uterine leiomyoma location: unspecified location Qualified Code(s): D25.9 - Leiomyoma of uterus, unspecified - Discharge Dispostion Disposition: HOME Condition at time of disposition: Improved - Referrals Referrals: Chris Durbin [Primary Care Provider] - Kori Granados MD [Staff Physician] - - Patient Instructions Printed Discharge Instructions: DI for Uterine Fibroids Additional Instructions: You came into the ED for abdominal pain. Labs and CT imaging did not indicate acute pathology We have referred you to an locomotive engineer electric specialist. Call and make an appointment tomorrow morning. Your workup is not complete until you do so. You can take over the counter motrin for pain. Follow the instructions on the medication bottle. Immediate medical attention is required if you develop: worsening pain, high fevers, persistent nausea, vomiting, or any new or concerning symptoms. If you think you are having an emergency, call for emergency medical services or present to the emergency department right away. - Post Discharge Activity
[2018-10-31] MEDS ORDERED: ACETAMINOPHEN 1000 MG/100 ML VIAL (NON FORMULARY) IVPB ONE (02:54)
[2018-10-31] MEDS ORDERED: SODIUM CHLORIDE 1,000 ML IV STA (02:54)
[2018-10-31] MEDS ORDERED: ACETAMINOPHEN INJECTION 100 ML IVPB ONE (03:08)
[2018-10-31 03:37] LABS: EPI CELLS 3.3 /HPF (0-5/HPF); HYALINE CASTS 10 /lpf (0-8); URINE APPEARANCE CLOUDY; URINE BACTERIA 15.7 /hpf (NEGATIVE); URINE BILIRUBIN NEGATIVE (NEGATIVE); URINE COLOR RED; URINE GLUCOSE (UA) NEGATIVE (NEGATIVE); URINE KETONE NEGATIVE (NEGATIVE); URINE LEUK ESTERASE 2+ (NEGATIVE); URINE NITRITE NEGATIVE (NEGATIVE); URINE PROTEIN 1+ (NEGATIVE); URINE RBC 4161 /hpf (0-4); URINE UROBILINOGEN 0.2 mg/dL (0.2-1.0); URINE WBC 34 /hpf (0-5)
--- NOTE | 2018-10-31 03:39 | PDOC ---
Attending Attestation - Resident Resident Name: Wandy Lopez - ED Attending Attestation I have performed the following: I have examined & evaluated the patient, The case was reviewed & discussed with the resident, I agree w/resident's findings & plan, Exceptions are as noted - HPI HPI: 10/31/18 07:03 43F with RLQ px for 2 days. Px is sharp, cramping, 8/10, no associated symptoms. - Physicial Exam PE: 10/31/18 07:04 Benign pelvic exam - Medical Decision Making 10/31/18 07:04 RLQ point tenderness, pt states she has had similar pain in the past that was attributed to fibroids will need to eval for appy f/u labs ct ap Imaging w/o acute pathology dc will f/u with her rotor plate washer
[2018-10-31 04:34] LABS: BASO % 0.4 % (0-2.0); EOS % 1.2 % (0-4.5); HEMATOCRIT 28.8 % (32.4-45.2); LYMPH % 21.9 % (8-40); MCHC 31.1 g/dl (32.0-36.0); MEAN CELL VOLUME 60.8 fl (80-96); MEAN PLT VOLUME 9.1 fl (7.5-11.1); MONO % 9.9 % (3.8-10.2); NEUT % 66.6 % (42.8-82.8); PLATELET COUNT 337 K/MM3 (134-434); RBC 4.74 M/mm3 (3.60-5.2); RDW 21.1 % (11.6-15.6); WHITE BLOOD COUNT 10.1 K/mm3 (4.0-10.0)
[2018-10-31 04:39] LABS: MCH 18.9 pg (25.7-33.7)
[2018-10-31 05:05] LABS: ALBUMIN 3.6 g/dl (3.4-5.0); BILIRUBIN,TOTAL 0.3 mg/dL (0.2-1); CREATININE 0.7 mg/dL (0.55-1.3); POTASSIUM 3.6 mmol/L (3.5-5.1); TOT PROT 8.2 g/dl (6.4-8.2)
== END 2018-10-31 06:51 | disposition home or self-care (01) ==
LOC: JER 01:05
PROC: 3E033NZ Introduction of Analgesics, Hypnotics, Sedatives into Peripheral Vein, Percutaneous Approach (ICD-10-PCS; principal; 2018-10-31)
DX: D25.9 Leiomyoma of uterus, unspecified (principal)
CPT/HCPCS: 36415; 74177-TC; 80053; 81003; 84703; 85025; 87086; 96374; 99283-25; J0131; J7030

== ENCOUNTER 2019-01-26 10:55 | Emergency (ER) | payer OTHER ==
[2019-01-26 11:03] VITALS: TEMP 97.8; BMI 44.2
--- NOTE | 2019-01-26 11:16 | PDOC ---
History of Present Illness - General Chief Complaint: Vaginal Bleeding Stated Complaint: HEAVY BLEEDING - History of Present Illness Initial Comments: The pt is a 43F with PMH of fibroids, fibromyalgia, anemia, herniated disc on day 4 of her menses who presents for pelvic cramping that is not alleviated by Ibuprofen, Tylenol, or Tramadol. She last took something for her pain at 0700. She reports associated nausea but denies vomiting, falls, chest pain, trouble breathing, or fevers. 01/26/19 11:16 Past History - Past Medical History Allergies/Adverse Reactions: Allergies Allergy/AdvReac Type Severity Reaction Status Date / Time No Known Allergies Allergy Verified 10/31/18 01:31 Home Medications: Ambulatory Orders Naproxen 500 mg PO BID PRN #12 tablet 01/26/19 Anemia: Yes Asthma: No Cancer: No Cardiac Disorders: No CVA: No COPD: No CHF: No Dementia: No Diabetes: No GI Disorders: No Disorders: No HTN: No Hypercholesterolemia: No Liver Disease: No Seizures: No Thyroid Disease: No Other medical history: endometreoisis - uterine fibroids - Surgical History Abdominal Surgery: Yes (HERNIA SX) Appendectomy: No Cardiac Surgery: No Cholecystectomy: Yes Lung Surgery: No Neurologic Surgery: No Orthopedic Surgery: No - Reproductive History (#): 3 Para: 2 Therapeutic (s) & number: Yes Spontaneous : 0 - Immunization History Immunization Up to Date: Yes - Psycho Social/Smoking Cessation Hx Smoking Status: No Smoking History: Never smoked Have you smoked in the past 12 months: No Number of Cigarettes Smoked Daily: 0 Hx Alcohol Use: No Drug/Substance Use Hx: No Substance Use Type: None Hx Substance Use Treatment: No Review of Systems - Review of Systems Able to Perform ROS?: Yes Comments:: GENERAL/CONSTITUTIONAL: No fever or chills. No weakness HEAD, EYES, EARS, NOSE AND THROAT: No change in vision. No change in hearing. No sore throat CARDIOVASCULAR: No chest pain or shortness of breath RESPIRATORY: Denies cough, hemoptysis GASTROINTESTINAL: No nausea, vomiting, diarrhea or constipation GENITOURINARY: No dysuria, frequency, or change in urination MUSCULOSKELETAL: No joint or muscle swelling or pain. No neck or back pain SKIN: No rash NEUROLOGIC: No headache, vertigo, loss of consciousness, or change in strength/ sensation ENDOCRINE: No increased thirst. No abnormal weight change HEMATOLOGIC/LYMPHATIC: +history of menorrhagia and anemia ALLERGIC/IMMUNOLOGIC: No hives or skin allergy 01/26/19 11:16 Is the patient limited Swedish proficient: No *Physical Exam - Vital Signs Last Vital Signs Temp Pulse Resp BP Pulse Ox 97.8 F 105 H 17 140/95 96 01/26/19 11:00 01/26/19 11:00 01/26/19 11:00 01/26/19 11:00 01/26/19 11:00 - Physical Exam Comments: GENERAL: Awake, alert, and oriented to person/place/time, in no acute distress HEAD: No signs of trauma, normocephalic, atraumatic EYES: PERRLA, EOMI, sclera anicteric, conjunctiva clear ENT: Hearing grossly normal, nares patent, oropharynx clear without exudates. Moist mucosa LUNGS: No distress, speaks in full sentences, clear to auscultation bilaterally HEART: Regular rate and rhythm, normal S1 and S2, no murmurs appreciated, peripheral pulses normal and equal bilaterally ABDOMEN: Soft, protuberant, NTTP, normoactive bowel sounds. No guarding, no rebound EXTREMITIES: Normal inspection, Normal range of motion, no edema. No clubbing or cyanosis_ NEUROLOGICAL: Cranial nerves II through XII grossly intact. Normal speech, no focal sensorimotor deficits SKIN: Warm, Dry 01/26/19 11:16 ED Treatment Course - LABORATORY CBC & Chemistry Diagram: 01/26/19 14:15 01/26/19 14:15 Medical Decision Making - Medical Decision Making The pt is a 43F with PMH of fibroids, fibromyalgia, anemia, herniated disc on day 4 of her menses who presents for pelvic cramping. Pt refused pelvic exam and US ED Course CMP, CBC Ofirmev and Zofran for symptomatic relief 01/26/19 11:34 Labs pending 01/26/19 14:36 Pt feels improved at this time WBC 13.4, afebrile and non-tachycardic Lytes unremarkable No ANANYA LFTs wnl serum preg pending 01/26/19 14:55 Serum preg neg Plan for D/C w/ PCP/OBGYN f/u Rx for Naproxen sent to pt's pharmacy Discharge instructions and return precautions given Pt in agreement and verbalized understanding Dispo: home 01/26/19 15:42 Discharge - Discharge Information Problems reviewed: Yes Clinical Impression/Diagnosis: Dysmenorrhea Condition: Stable Disposition: HOME - Admission No - Additional Discharge Information Prescriptions: Naproxen 500 mg PO BID PRN #12 tablet PRN Reason: Pain - Follow up/Referral Referrals: Chris Durbin [Primary Care Provider] - - Patient Discharge Instructions Patient Printed Discharge Instructions: DI for Dysmenorrhea Additional Instructions: You were seen in the Emergency Department for evaluation of dysmenorrhea. Your hemoglobin was 9.1. The remainder of your labs were unremarkable. Maintain follow up with your OBGYN and primary care provider. For pain you may take Tylenol 650mg every 6 hours and Ibuprofen 600mg every 6-8 hours, alternating them each time. Return to the Emergency Department if you develop fevers, chest pain, trouble breathing, worsening pain, change in sensation, worsening symptoms, or any new/ concerning symptoms. - Post Discharge Activity
[2019-01-26] MEDS ORDERED: ONDANSETRON 4 MG/2 ML VIAL IVPUSH ONE (11:32)
[2019-01-26] MEDS ORDERED: ACETAMINOPHEN 1000 MG/100 ML VIAL (NON FORMULARY) IVPB ONE (11:32)
--- NOTE | 2019-01-26 12:34 | PDOC ---
Attending Attestation - Resident Resident Name: Bertram Carrero - ED Attending Attestation I have performed the following: I have examined & evaluated the patient, The case was reviewed & discussed with the resident, I agree w/resident's findings & plan, Exceptions are as noted - HPI HPI: 01/26/19 12:31 Ms. Tran is a 43-year-old female with a history of endometriosis, fibroids, fibromyalgia. Patient is currently on day 4 of her menses, presents with pelvic cramping. Patient has taken ibuprofen, tramadol with little improvement. No nausea or vomiting No fever or chills - Physicial Exam PE: 01/26/19 12:32 GENERAL: The patient is in no acute distress. ENT: Moist mucous membranes. NECK: Normal range of motion LUNGS: Breath sounds equal, clear to auscultation bilaterally. No wheezes, and no crackles. HEART:Regular rate and rhythm, normal S1 and S2 without murmur, rub or gallop. ABDOMEN: Soft, lower abdominal tenderness to palpation PELVIC: deferred by patient EXTREMITIES: Normal range of motion, no edema. NEUROLOGICAL: Cranial nerves II through XII grossly intact. Normal speech. No focal neurological deficits. SKIN: Warm, Dry, normal turgor, no rashes or lesions noted. - Medical Decision Making 01/26/19 12:32 43-year-old female presenting to the emergency department with a complaint of dysmenorrhea in the setting of a history of fibroids as well as endometriosis. Patient refusing pelvic examination. Differential diagnosis includes but is not limited to: Endometriosis, degenerating fibroid, ovarian torsion, ruptured ovarian cyst We will do: Basic labs (patient has a history of anemia, hemoglobin generally 7, will be sure this is stable) Transvaginal ultrasound Analgesia Reassess Pt refused TV US Pain improved Will discharge to home Return to the ER for any other concerns or complaints
[2019-01-26] MEDS ORDERED: SODIUM CHLORIDE 0.9% 500 ML INFUS.BAG IV ONE (13:16)
[2019-01-26] MEDS ORDERED: ACETAMINOPHEN INJECTION 100 ML IVPB ONE (13:19)
[2019-01-26] MEDS ORDERED: ONDANSETRON 4 MG/2 ML VIAL ONE (13:19)
[2019-01-26 14:34] LABS: BASO % 0.2 % (0-2.0); EOS % 0.1 % (0-4.5); HEMATOCRIT 29.3 % (32.4-45.2); HEMOGLOBIN 9.1 GM/dL (10.7-15.3); LYMPH % 10.8 % (8-40); MEAN CELL VOLUME 59.5 fl (80-96); MEAN PLT VOLUME 9.2 fl (7.5-11.1); MONO % 6.5 % (3.8-10.2); NEUT % 82.4 % (42.8-82.8); PLATELET COUNT 432 K/MM3 (134-434); RBC 4.93 M/mm3 (3.60-5.2); RDW 21.4 % (11.6-15.6); WHITE BLOOD COUNT 13.4 K/mm3 (4.0-10.0)
[2019-01-26 14:37] LABS: MCH 18.4 pg (25.7-33.7)
[2019-01-26 14:52] LABS: ALBUMIN 3.7 g/dl (3.4-5.0); BILIRUBIN,TOTAL 0.5 mg/dL (0.2-1); BLOOD UREA NITROGEN 5.7 mg/dL (7-18); CALCIUM 9.4 mg/dL (8.5-10.1); CREATININE 0.7 mg/dL (0.55-1.3); POTASSIUM 4.3 mmol/L (3.5-5.1); TOT PROT 8.9 g/dl (6.4-8.2)
[2019-01-26 15:19] LABS: ANISOCYTOSIS 2+; MACROCYTOSIS 0; PLATELET ESTIMATE NORMAL; TARGET CELLS 1+; TEAR DROP CELLS 1+
[2019-01-26 18:09] VITALS: BP 117/74; PULSE 82
== END 2019-01-26 16:30 | disposition home or self-care (01) ==
LOC: JER 10:55
PROC: 3E033NZ Introduction of Analgesics, Hypnotics, Sedatives into Peripheral Vein, Percutaneous Approach (ICD-10-PCS; principal; 2019-01-26)
PROC: 3E033GC Introduction of Other Therapeutic Substance into Peripheral Vein, Percutaneous Approach (ICD-10-PCS; 2019-01-26)
DX: N94.4 Primary dysmenorrhea (principal); Z86.2 Personal history of diseases of the blood and blood-forming organs and certain disorders involving the immune mechanism; D64.9 Anemia, unspecified; M79.7 Fibromyalgia
CPT/HCPCS: 36415; 80053; 84703; 85025; 96374; 96375; 99283-25; J0131

== ENCOUNTER 2020-07-09 09:40 | Emergency (ER) | payer OTHER ==
[2020-07-09 09:46] VITALS: BP 142/84; PULSE 120; TEMP 97.8; BMI 41.5
[2020-07-09] MEDS ORDERED: SODIUM CHLORIDE 1,000 ML IV STA (10:22)
[2020-07-09] MEDS ORDERED: LIDOCAINE 5% TOPICAL PATCH TP ONE (10:22)
[2020-07-09] MEDS ORDERED: ONDANSETRON 4 MG/2 ML VIAL IVPUSH ONE (10:22)
[2020-07-09] MEDS ORDERED: ACETAMINOPHEN 1000 MG/100 ML VIAL (NON FORMULARY) IVPB ONE (10:22)
[2020-07-09] MEDS ORDERED: ACETAMINOPHEN INJECTION 100 ML IVPB ONE (11:02)
[2020-07-09] MEDS ORDERED: ONDANSETRON 4 MG/2 ML VIAL ONE (11:03)
[2020-07-09 11:43] LABS: INR 1.29 (0.83-1.09); PROTHROMBIN TIME (PATIENT) 15.7 SEC (9.7-13.0)
[2020-07-09 11:51] LABS: BASO % 0.2 % (0-2.0); HEMATOCRIT 35.5 % (32.4-45.2); HEMOGLOBIN 11.9 GM/dL (10.7-15.3); LYMPH % 17.5 % (8-40); MCH 26.2 pg (25.7-33.7); MCHC 33.7 g/dl (32.0-36.0); MEAN CELL VOLUME 77.6 fl (80-96); MEAN PLT VOLUME 9.4 fl (7.5-11.1); MONO % 14.9 % (3.8-10.2); NEUT % 67.4 % (42.8-82.8); PLATELET COUNT 214 K/MM3 (134-434); RBC 4.57 M/mm3 (3.60-5.2); RDW 17.9 % (11.6-15.6); WHITE BLOOD COUNT 6.5 K/mm3 (4.0-10.0)
[2020-07-09 11:55] LABS: POTASSIUM 3.4 mmol/L (3.5-5.1)
[2020-07-09 12:01] LABS: ALBUMIN 3.3 g/dl (3.4-5.0); BLOOD UREA NITROGEN 5.8 mg/dL (7-18); CALCIUM 8.8 mg/dL (8.5-10.1)
[2020-07-09 12:04] LABS: CREATININE 0.8 mg/dL (0.55-1.3)
[2020-07-09] MEDS ORDERED: KETOROLAC TROMETHAMINE 15 MG/ML VIAL IVPUSH ONE (12:04)
[2020-07-09 12:05] LABS: BILIRUBIN,TOTAL 0.4 mg/dL (0.2-1)
[2020-07-09] MEDS ORDERED: KETOROLAC TROMETHAMINE 15 MG/ML VIAL ONE (12:45)
[2020-07-09] MEDS ORDERED: LIDOCAINE PATCH REMOVAL MC ONE (22:00)
== END 2020-07-09 13:34 | disposition home or self-care (01) ==
LOC: JER 09:40
PROC: 3E033GC Introduction of Other Therapeutic Substance into Peripheral Vein, Percutaneous Approach (ICD-10-PCS; principal; 2020-07-09)
PROC: 3E0337Z Introduction of Electrolytic and Water Balance Substance into Peripheral Vein, Percutaneous Approach (ICD-10-PCS; principal; 2020-07-09)
DX: F50.2 Bulimia nervosa (principal); Z11.52 Encounter for screening for COVID-19
CPT/HCPCS: 36415; 80053; 85025; 85610; 99284-25; C9803; J0131; U0003; U0005

== ENCOUNTER 2020-07-12 22:58 | Inpatient (IN) | payer OTHER ==
[2020-07-12 23:37] VITALS: BMI 41.5
[2020-07-13] MEDS ORDERED: DEXAMETHASONE SOD PHOSPHATE 4 MG/1 ML VIAL IVPUSH ONE (00:49)
[2020-07-13] MEDS ORDERED: SODIUM CHLORIDE 0.9% 500 ML INFUS.BAG IV ONE (00:49)
[2020-07-13] MEDS ORDERED: ACETAMINOPHEN 1000 MG/100 ML VIAL (NON FORMULARY) IVPB ONE (01:06)
[2020-07-13] MEDS ORDERED: ONDANSETRON 4 MG/2 ML VIAL IVPUSH ONE (01:06)
[2020-07-13] MEDS ORDERED: DEXAMETHASONE SOD PHOSPHATE 10 MG/1 ML VIAL ONE (02:11)
[2020-07-13] MEDS ORDERED: ACETAMINOPHEN INJECTION 100 ML IVPB ONE (02:11)
[2020-07-13] MEDS ORDERED: ONDANSETRON 4 MG/2 ML VIAL ONE (02:11)
[2020-07-13 03:07] LABS: BASO % 0.3 % (0-2.0); HEMATOCRIT 33.4 % (32.4-45.2); HEMOGLOBIN 11.3 GM/dL (10.7-15.3); LYMPH % 15.3 % (8-40); MCH 25.8 pg (25.7-33.7); MCHC 33.7 g/dl (32.0-36.0); MEAN CELL VOLUME 76.6 fl (80-96); MEAN PLT VOLUME 9.9 fl (7.5-11.1); MONO % 9.8 % (3.8-10.2); NEUT % 74.6 % (42.8-82.8); PLATELET COUNT 183 K/MM3 (134-434); RBC 4.36 M/mm3 (3.60-5.2); WHITE BLOOD COUNT 5.6 K/mm3 (4.0-10.0)
[2020-07-13 03:12] LABS: VENOUS BASE EXCESS 0.2 mmol/L (-2-2); VENOUS PH 7.403 (7.310-7.410)
[2020-07-13 03:23] LABS: VENOUS O2 SATURATION 72.3 % (70-80)
[2020-07-13 03:24] LABS: CHLORIDE 103 mmol/L (98-107); POTASSIUM 4.2 mmol/L (3.5-5.1); SODIUM 138 mmol/L (136-145)
[2020-07-13 03:27] LABS: ALBUMIN 2.8 g/dl (3.4-5.0); ANION GAP 11 MMOL/L (8-16); BLOOD UREA NITROGEN 7.2 mg/dL (7-18); CALCIUM 8.2 mg/dL (8.5-10.1); CO2 24 mmol/L (21-32); GLUCOSE,RANDOM 97 mg/dL (74-106); LIPASE 100 U/L (73-393)
[2020-07-13 03:30] LABS: BILIRUBIN,DIRECT 0.1 mg/dL (0.0-0.2); SGOT/AST 75 U/L (15-37); SGPT/ALT 32 U/L (13-61)
[2020-07-13 03:31] LABS: LDH 644 U/L (84-246)
[2020-07-13 03:32] LABS: BILIRUBIN,TOTAL 0.8 mg/dL (0.2-1); TOT PROT 7.9 g/dl (6.4-8.2)
[2020-07-13 03:33] LABS: ALK PHOS 74 U/L (45-117)
[2020-07-13 07:39] LABS: INR 1.32 (0.83-1.09); PROTHROMBIN TIME (PATIENT) 15.8 SEC (9.7-13.0)
[2020-07-13 07:41] LABS: ACTIVATED PTT 32.8 SECONDS (25.2-36.5)
[2020-07-13] MEDS ORDERED: ONDANSETRON 4 MG/2 ML VIAL IVPUSH PRN (08:30)
[2020-07-13] MEDS ORDERED: DEXAMETHASONE SOD PHOSPHATE 4 MG/1 ML VIAL ONE (10:15)
[2020-07-13] MEDS ORDERED: ENOXAPARIN NA (PORCINE) 40 MG/0.4 ML DISP.SYRIN SQ ONE (10:16)
[2020-07-13] MEDS ORDERED: ZINC SULFATE 220 MG CAPSULE (FP) ONE (10:17)
[2020-07-13] MEDS ORDERED: ASCORBIC ACID 500 MG TABLET (FP) ONE (10:17)
[2020-07-13] MEDS: ZINC SULFATE 220 MG CAPSULE (FP) PO SCH (10:43)
[2020-07-13] MEDS: CHOLECALCIFEROL (VIT D3) 400 UNIT (10 MCG) TABLET PO SCH (10:43)
[2020-07-13] MEDS: ASCORBIC ACID 500 MG TABLET (FP) PO SCH (10:43)
[2020-07-13] MEDS: ENOXAPARIN NA (PORCINE) 40 MG/0.4 ML DISP.SYRIN SQ SCH ×2 (10:43→21:34)
[2020-07-13] MEDS: DEXAMETHASONE SOD PHOSPHATE 4 MG/1 ML VIAL IVPUSH SCH (10:43)
[2020-07-13] MEDS: SODIUM CHLORIDE 1,000 ML IV SCH (13:15)
[2020-07-13 20:52] LABS: EPI CELLS >36 /uL (0-25.1); HYALINE CASTS 1 /uL (0-3.1); PH,URINE 5.5 (5.0-8.0); URINE APPEARANCE CLOUDY; URINE BACTERIA 1380 /uL (0-1359); URINE BILIRUBIN NEGATIVE (NEGATIVE); URINE COLOR ORANGE; URINE GLUCOSE (UA) NEGATIVE (NEGATIVE); URINE KETONE 2+ (NEGATIVE); URINE LEUK ESTERASE TRACE (NEGATIVE); URINE NITRITE NEGATIVE (NEGATIVE); URINE PROTEIN 1+ (NEGATIVE); URINE RBC 1151 /uL (0-23.9); URINE UROBILINOGEN 0.2 mg/dL (0.2-1.0); URINE WBC 43 /uL (0-25.8)
[2020-07-14] MEDS ORDERED: SIMETHICONE 80 MG TAB.CHEW (FP) PO PRN (02:49)
[2020-07-14] MEDS ORDERED: ACETAMINOPHEN 325 MG TABLET (FP) PO PRN (05:25)
[2020-07-14 08:27] LABS: BASO % 0.2 % (0-2.0); HEMATOCRIT 28.6 % (32.4-45.2); HEMOGLOBIN 9.8 GM/dL (10.7-15.3); LYMPH % 7.8 % (8-40); MCHC 34.2 g/dl (32.0-36.0); MEAN CELL VOLUME 76.2 fl (80-96); MEAN PLT VOLUME 9.4 fl (7.5-11.1); MONO % 8.2 % (3.8-10.2); NEUT % 83.8 % (42.8-82.8); PLATELET COUNT 180 K/MM3 (134-434); RBC 3.76 M/mm3 (3.60-5.2); RDW 18.1 % (11.6-15.6); WHITE BLOOD COUNT 9.6 K/mm3 (4.0-10.0)
[2020-07-14 08:33] LABS: CALCIUM 8.2 mg/dL (8.5-10.1)
[2020-07-14 08:34] LABS: ALBUMIN 2.5 g/dl (3.4-5.0); BLOOD UREA NITROGEN 5.8 mg/dL (7-18); MAGNESIUM 2.1 mg/dL (1.8-2.4)
[2020-07-14 08:36] LABS: CREATININE 0.7 mg/dL (0.55-1.3)
[2020-07-14 08:38] LABS: BILIRUBIN,TOTAL 0.4 mg/dL (0.2-1); TOT PROT 6.5 g/dl (6.4-8.2)
[2020-07-14] MEDS: DEXAMETHASONE SOD PHOSPHATE 4 MG/1 ML VIAL IVPUSH SCH (10:31)
[2020-07-14] MEDS: ENOXAPARIN NA (PORCINE) 40 MG/0.4 ML DISP.SYRIN SQ SCH ×2 (10:31→21:40)
[2020-07-14] MEDS: CHOLECALCIFEROL (VIT D3) 400 UNIT (10 MCG) TABLET PO SCH (10:32)
[2020-07-14] MEDS: ASCORBIC ACID 500 MG TABLET (FP) PO SCH (10:32)
[2020-07-14] MEDS: ZINC SULFATE 220 MG CAPSULE (FP) PO SCH (10:32)
[2020-07-14] MEDS: SODIUM CHLORIDE 1,000 ML IV SCH ×2 (11:21→15:03)
[2020-07-14] MEDS ORDERED: POTASSIUM CHLORIDE TABS 20 MEQ TABLET.ER (FP) PO ONE ×2 (14:30→18:53)
[2020-07-14] MEDS: CEFUROXIME AXETIL 500 MG TABLET PO SCH (21:40)
[2020-07-15 06:16] VITALS: PULSE 67; TEMP 98.6
[2020-07-15 09:20] LABS: POTASSIUM 3.2 mmol/L (3.5-5.1)
[2020-07-15 09:23] LABS: ALBUMIN 2.6 g/dl (3.4-5.0); MAGNESIUM 1.9 mg/dL (1.8-2.4)
[2020-07-15 09:26] LABS: CREATININE 0.6 mg/dL (0.55-1.3)
[2020-07-15 09:28] LABS: BILIRUBIN,TOTAL 0.4 mg/dL (0.2-1); TOT PROT 6.4 g/dl (6.4-8.2)
[2020-07-15] MEDS ORDERED: POTASSIUM CHLORIDE TABS 20 MEQ TABLET.ER (FP) PO ONE (10:00)
[2020-07-15] MEDS: ENOXAPARIN NA (PORCINE) 40 MG/0.4 ML DISP.SYRIN SQ SCH (10:15)
[2020-07-15] MEDS: ASCORBIC ACID 500 MG TABLET (FP) PO SCH (10:15)
[2020-07-15] MEDS: ZINC SULFATE 220 MG CAPSULE (FP) PO SCH (10:15)
[2020-07-15] MEDS: CHOLECALCIFEROL (VIT D3) 400 UNIT (10 MCG) TABLET PO SCH (10:16)
[2020-07-15] MEDS: CEFUROXIME AXETIL 500 MG TABLET PO SCH (10:16)
[2020-07-15] MEDS: DEXAMETHASONE SOD PHOSPHATE 4 MG/1 ML VIAL IVPUSH SCH (10:16)
[2020-07-15 12:32] VITALS: BP 133/80
== END 2020-07-15 15:23 | disposition home or self-care (01) | DRG 137 ==
LOC: JER 22:58 → JERBED 07-13 01:10 → J6S 07-13 14:55
PROVIDERS: ADMIT Internal Medicine; ATTEND Nurse Practitioner Family
PROC: 8E0ZXY6 Isolation (ICD-10-PCS; principal; 2020-07-13)
DX: U07.1 COVID-19 (principal); J12.82 Pneumonia due to coronavirus disease 2019; A08.39 Other viral enteritis; E66.01 Morbid (severe) obesity due to excess calories; Z68.41 Body mass index [BMI] 40.0-44.9, adult; D64.9 Anemia, unspecified; D57.3 Sickle-cell trait; N94.6 Dysmenorrhea, unspecified; D25.9 Leiomyoma of uterus, unspecified
CPT/HCPCS: 36415; 71045-TC-FY; 71275-TC; 74177-TC; 80053; 81003; 82248; 82550; 82553; 82728; 82803; 83605; 83615; 83690; 83735; 84132; 84484; 84703; 85025; 85379; 85610; 85730; 86140; 86769; 87040; 87086; 87186; 87804; 93005; 93010; 94010; 94761; 99285-25; C9803; J0131; U0003; U0005

== ENCOUNTER 2020-08-12 14:12 | Emergency (ER) | payer OTHER ==
[2020-08-12 14:30] VITALS: BP 128/85; PULSE 109; TEMP 98.2; BMI 40.7
[2020-08-12] MEDS ORDERED: SODIUM CHLORIDE 1,000 ML IV STA (15:54)
[2020-08-12] MEDS ORDERED: ONDANSETRON 4 MG/2 ML VIAL IVPUSH ONE (15:54)
[2020-08-12] MEDS ORDERED: ACETAMINOPHEN 1000 MG/100 ML VIAL (NON FORMULARY) IVPB ONE (15:54)
[2020-08-12] MEDS ORDERED: ACETAMINOPHEN INJECTION 100 ML IVPB ONE (16:18)
[2020-08-12] MEDS ORDERED: ONDANSETRON 4 MG/2 ML VIAL ONE (16:18)
[2020-08-12 16:38] LABS: BASO % 0.5 % (0-2.0); EOS % 0.9 % (0-4.5); HEMATOCRIT 34.7 % (32.4-45.2); HEMOGLOBIN 11.7 GM/dL (10.7-15.3); MCH 25.3 pg (25.7-33.7); MCHC 33.6 g/dl (32.0-36.0); MEAN CELL VOLUME 75.5 fl (80-96); MEAN PLT VOLUME 8.1 fl (7.5-11.1); MONO % 7.9 % (3.8-10.2); NEUT % 69.7 % (42.8-82.8); PLATELET COUNT 395 K/MM3 (134-434); RDW 18.4 % (11.6-15.6); WHITE BLOOD COUNT 12.7 K/mm3 (4.0-10.0)
[2020-08-12 16:53] LABS: EPI CELLS 12 /uL (0-25.1); HYALINE CASTS 3 /uL (0-3.1); URINE APPEARANCE Error; URINE BACTERIA 146 /uL (0-1359); URINE BILIRUBIN NEGATIVE (NEGATIVE); URINE COLOR ORANGE; URINE GLUCOSE (UA) NEGATIVE (NEGATIVE); URINE KETONE TRACE (NEGATIVE); URINE LEUK ESTERASE TRACE (NEGATIVE); URINE NITRITE NEGATIVE (NEGATIVE); URINE PROTEIN 1+ (NEGATIVE); URINE RBC 7480 /uL (0-23.9); URINE UROBILINOGEN 0.2 mg/dL (0.2-1.0); URINE WBC 17 /uL (0-25.8)
[2020-08-12 16:59] LABS: HCG,QUALITATIVE URINE Negative
[2020-08-12 17:01] LABS: BLOOD UREA NITROGEN 8.1 mg/dL (7-18); CALCIUM 9.4 mg/dL (8.5-10.1)
[2020-08-12] MEDS ORDERED: METHOCARBAMOL 500 MG TABLET PO ONE (17:01)
[2020-08-12 17:02] LABS: ALBUMIN 3.6 g/dl (3.4-5.0)
[2020-08-12 17:03] LABS: CREATININE 0.8 mg/dL (0.55-1.3)
[2020-08-12 17:06] LABS: BILIRUBIN,TOTAL 0.5 mg/dL (0.2-1); TOT PROT 8.3 g/dl (6.4-8.2)
[2020-08-12 17:24] LABS: INR 1.18 (0.83-1.09); PROTHROMBIN TIME (PATIENT) 14.5 SEC (9.7-13.0)
[2020-08-12] MEDS ORDERED: morphine CARPU-JECT 4 MG/1 ML DISP.SYRIN IVPUSH ONE (17:35)
[2020-08-12] MEDS ORDERED: METHOCARBAMOL 500 MG TABLET ONE (18:04)
[2020-08-12] MEDS ORDERED: MORPHINE SULFATE 2 MG/ML VIAL ONE (18:05)
== END 2020-08-12 21:05 | disposition home or self-care (01) ==
LOC: JER 14:12
PROC: 3E033NZ Introduction of Analgesics, Hypnotics, Sedatives into Peripheral Vein, Percutaneous Approach (ICD-10-PCS; principal; 2020-08-12)
PROC: 3E033GC Introduction of Other Therapeutic Substance into Peripheral Vein, Percutaneous Approach (ICD-10-PCS; 2020-08-12)
PROC: 3E0337Z Introduction of Electrolytic and Water Balance Substance into Peripheral Vein, Percutaneous Approach (ICD-10-PCS; 2020-08-12)
DX: R10.84 Generalized abdominal pain (principal)
CPT/HCPCS: 36415; 74177-TC; 80053; 81003; 83540; 83550; 83690; 84703; 85025; 85610; 87086; 99285-25; J0131; Q9967

== ENCOUNTER 2020-10-30 12:48 | Observation (INO) | payer OTHER ==
[2020-10-30] MEDS ORDERED: SODIUM CHLORIDE 0.9% 500 ML INFUS.BAG IV ONE (13:43)
[2020-10-30] MEDS ORDERED: FAMOTIDINE 20 MG/50 ML IVPB 20 MG/50 ML MG IVPB ONE ×2 (13:43→14:24)
[2020-10-30] MEDS ORDERED: ONDANSETRON 4 MG/2 ML VIAL IVPUSH ONE (13:43)
[2020-10-30 14:18] LABS: BASO % 0.6 % (0-2.0); EOS % 0.2 % (0-4.5); HEMATOCRIT 34.9 % (32.4-45.2); HEMOGLOBIN 11.1 GM/dL (10.7-15.3); LYMPH % 9.7 % (8-40); MCHC 31.8 g/dl (32.0-36.0); MEAN CELL VOLUME 69.2 fl (80-96); MONO % 5.9 % (3.8-10.2); NEUT % 83.6 % (42.8-82.8); PLATELET COUNT 470 10^3/uL (134-434); RBC 5.04 M/mm3 (3.60-5.2); RDW 19.5 % (11.6-15.6)
[2020-10-30 14:22] LABS: EPI CELLS 34 /uL (0-25.1); HCG,QUALITATIVE URINE Negative; HYALINE CASTS 15 /uL (0-3.1); URINE APPEARANCE TURBID; URINE BACTERIA 0 /uL (0-1359); URINE BILIRUBIN 1+ (NEGATIVE); URINE COLOR RED; URINE GLUCOSE (UA) NEGATIVE (NEGATIVE); URINE KETONE NEGATIVE (NEGATIVE); URINE LEUK ESTERASE 2+ (NEGATIVE); URINE NITRITE NEGATIVE (NEGATIVE); URINE PROTEIN 1+ (NEGATIVE); URINE UROBILINOGEN 0.2 mg/dL (0.2-1.0); URINE WBC 205 /uL (0-25.8)
[2020-10-30 14:24] LABS: CHLORIDE 102 mmol/L (98-107); SODIUM 137 mmol/L (136-145)
[2020-10-30] MEDS ORDERED: ONDANSETRON 4 MG/2 ML VIAL ONE (14:24)
[2020-10-30 14:27] LABS: ALBUMIN 3.8 g/dl (3.4-5.0); ANION GAP 10 MMOL/L (8-16); BLOOD UREA NITROGEN 8.4 mg/dL (7-18); CALCIUM 9.5 mg/dL (8.5-10.1); CO2 25 mmol/L (21-32); GLUCOSE,RANDOM 106 mg/dL (74-106); INR 1.15 (0.83-1.09); LIPASE 97 U/L (73-393); PROTHROMBIN TIME (PATIENT) 14.1 SEC (9.7-13.0)
[2020-10-30 14:30] LABS: ACTIVATED PTT 32.7 SECONDS (25.2-36.5); CREATININE 0.9 mg/dL (0.55-1.3); SGOT/AST 8 U/L (15-37); SGPT/ALT 15 U/L (13-61)
[2020-10-30 14:31] LABS: BILIRUBIN,TOTAL 0.5 mg/dL (0.2-1); URINE RBC 37096.5 /uL (0-23.9)
[2020-10-30 14:33] LABS: ALK PHOS 110 U/L (45-117); YEAST NON SEEN (NEGATIVE)
[2020-10-30 15:35] LABS: ANISOCYTOSIS 1+; MACROCYTOSIS 0; OVALOCYTE 1+; PLATELET ESTIMATE NORMAL; TARGET CELLS 1+; TEAR DROP CELLS 1+
[2020-10-30] MEDS ORDERED: morphine CARPU-JECT 4 MG/1 ML DISP.SYRIN IVPUSH ONE (15:43)
[2020-10-30] MEDS ORDERED: morphine SULFATE 4 MG/ML VIAL ONE (15:55)
[2020-10-30] MEDS ORDERED: CEFTRIAXONE 1,000 MG in DEXTROSE 5%-WATER - 50 ML IVPB ONE (18:29)
[2020-10-30] MEDS ORDERED: CEFTRIAXONE 1 GM/50 ML BAG ONE (18:39)
[2020-10-30] MEDS ORDERED: AZITHROMYCIN IVPB 500 MG in DEXTROSE 5%-WATER - 250 ML IVPB ONE (19:38)
[2020-10-30] MEDS ORDERED: AZITHROMYCIN IVPB 500 MG/250 ML BAG IVPB ONE (19:58)
[2020-10-31] MEDS ORDERED: MORPHINE SULFATE 2 MG/ML VIAL IVPUSH PRN ×2 (00:55→14:05)
[2020-10-31] MEDS ORDERED: ACETAMINOPHEN 325 MG TABLET (FP) PO PRN (00:55)
[2020-10-31] MEDS ORDERED: ONDANSETRON 4 MG/2 ML VIAL IVPUSH PRN (00:59)
[2020-10-31] MEDS ORDERED: SODIUM CHLORIDE 1,000 ML IV SCH (01:00)
[2020-10-31] MEDS ORDERED: ACETAMINOPHEN 325 MG TABLET (FP) ONE (01:55)
[2020-10-31 05:16] VITALS: BMI 44.1
[2020-10-31 08:40] LABS: BASO % 0.2 % (0-2.0); EOS % 0.7 % (0-4.5); HEMATOCRIT 29.4 % (32.4-45.2); HEMOGLOBIN 9.7 GM/dL (10.7-15.3); MCH 22.6 pg (25.7-33.7); MEAN CELL VOLUME 68.4 fl (80-96); MEAN PLT VOLUME 7.9 fl (7.5-11.1); NEUT % 75.1 % (42.8-82.8); PLATELET COUNT 349 10^3/uL (134-434); RBC 4.29 M/mm3 (3.60-5.2); RDW 19.5 % (11.6-15.6); WHITE BLOOD COUNT 11.8 K/mm3 (4.0-10.0)
[2020-10-31 09:01] LABS: ALBUMIN 3.3 g/dl (3.4-5.0); BLOOD UREA NITROGEN 7.1 mg/dL (7-18)
[2020-10-31 09:04] LABS: CREATININE 0.7 mg/dL (0.55-1.3); PHOSPHOROUS 3.5 mg/dL (2.5-4.9)
[2020-10-31 09:06] LABS: BILIRUBIN,TOTAL 0.5 mg/dL (0.2-1); TOT PROT 7.6 g/dl (6.4-8.2)
[2020-10-31] MEDS ORDERED: POTASSIUM CHLORIDE TABS 20 MEQ TABLET.ER (FP) PO ONE (10:00)
[2020-10-31] MEDS ORDERED: PT OWN MED DRAWER 7, Y5N ONE (10:32)
[2020-10-31] MEDS ORDERED: cefTRIAXone SODIUM 1 GM VIAL ONE (10:33)
[2020-10-31] MEDS ORDERED: DEXTROSE 5%-WATER - 50 ML IVPB ONE (10:33)
[2020-10-31] MEDS: FOLIC ACID 1 MG TABLET (FP) PO SCH (10:46)
[2020-10-31] MEDS: PANTOPRAZOLE 40 MG TABLET PO SCH (10:46)
[2020-10-31] MEDS: ENOXAPARIN NA (PORCINE) 40 MG/0.4 ML DISP.SYRIN SQ SCH ×2 (10:47→21:50)
[2020-10-31] MEDS: CEFTRIAXONE 1 GM in DEXTROSE 5%-WATER - 50 ML IVPB SCH (10:47)
[2020-10-31] MEDS: TRIAMTERENE AND HCTZ - 37.5 MG/25 MG CAPSULE PO SCH (11:22)
[2020-10-31] MEDS ORDERED: MORPHINE SULFATE 2 MG/ML VIAL IVPUSH ONE (14:03)
[2020-11-01] MEDS ORDERED: diphenhydrAMINE HCL 25 MG CAPSULE (FP) PO ONE (03:45)
[2020-11-01 06:38] VITALS: TEMP 98.6
[2020-11-01 08:14] LABS: EPI CELLS 5 /uL (0-25.1); HYALINE CASTS 2 /uL (0-3.1); PH,URINE 5.5 (5.0-8.0); URINE APPEARANCE CLEAR; URINE BACTERIA 7 /uL (0-1359); URINE BILIRUBIN NEGATIVE (NEGATIVE); URINE COLOR YELLOW; URINE GLUCOSE (UA) NEGATIVE (NEGATIVE); URINE KETONE NEGATIVE (NEGATIVE); URINE LEUK ESTERASE TRACE (NEGATIVE); URINE NITRITE NEGATIVE (NEGATIVE); URINE PROTEIN NEGATIVE (NEGATIVE); URINE RBC 1894 /uL (0-23.9); URINE UROBILINOGEN 0.2 mg/dL (0.2-1.0); URINE WBC 17 /uL (0-25.8)
[2020-11-01] MEDS ORDERED: cefTRIAXone SODIUM 1 GM VIAL ONE (09:00)
[2020-11-01] MEDS ORDERED: DEXTROSE 5%-WATER - 50 ML IVPB ONE (09:00)
[2020-11-01] MEDS ORDERED: PT OWN MED DRAWER 7, Y5N ONE (09:09)
[2020-11-01] MEDS: ENOXAPARIN NA (PORCINE) 40 MG/0.4 ML DISP.SYRIN SQ SCH (09:11)
[2020-11-01] MEDS: TRIAMTERENE AND HCTZ - 37.5 MG/25 MG CAPSULE PO SCH (09:11)
[2020-11-01] MEDS: PANTOPRAZOLE 40 MG TABLET PO SCH (09:11)
[2020-11-01] MEDS: FOLIC ACID 1 MG TABLET (FP) PO SCH (09:11)
[2020-11-01] MEDS: CEFTRIAXONE 1 GM in DEXTROSE 5%-WATER - 50 ML IVPB SCH (09:12)
[2020-11-01 11:52] LABS: BASO % 0.6 % (0-2.0); EOS % 1.4 % (0-4.5); HEMATOCRIT 30.1 % (32.4-45.2); HEMOGLOBIN 9.8 GM/dL (10.7-15.3); LYMPH % 21.6 % (8-40); MCH 22.5 pg (25.7-33.7); MCHC 32.7 g/dl (32.0-36.0); MEAN CELL VOLUME 68.8 fl (80-96); MEAN PLT VOLUME 7.9 fl (7.5-11.1); MONO % 12.3 % (3.8-10.2); NEUT % 64.1 % (42.8-82.8); PLATELET COUNT 361 10^3/uL (134-434); RBC 4.37 M/mm3 (3.60-5.2); RDW 18.9 % (11.6-15.6); WHITE BLOOD COUNT 9.4 K/mm3 (4.0-10.0)
[2020-11-01 12:19] LABS: BLOOD UREA NITROGEN 9.4 mg/dL (7-18)
[2020-11-01 12:20] LABS: ALBUMIN 3.3 g/dl (3.4-5.0)
[2020-11-01 12:24] LABS: CREATININE 0.9 mg/dL (0.55-1.3)
[2020-11-01 12:25] LABS: BILIRUBIN,TOTAL 0.4 mg/dL (0.2-1); TOT PROT 7.8 g/dl (6.4-8.2)
[2020-11-01] MEDS ORDERED: POTASSIUM CHLORIDE TABS 20 MEQ TABLET.ER (FP) PO ONE ×2 (13:00→16:30)
[2020-11-01 13:59] VITALS: BP 103/74; PULSE 84
== END 2020-11-01 18:17 | disposition home or self-care (01) ==
LOC: JER 12:48 → JERBED 19:54 → INTOOBSV 19:54 → J6S 10-31 04:31
PROVIDERS: ADMIT Internal Medicine; ATTEND Nurse Practitioner Family
PROC: 3E03329 Introduction of Other Anti-infective into Peripheral Vein, Percutaneous Approach (ICD-10-PCS; principal; 2020-10-30)
PROC: 3E023GC Introduction of Other Therapeutic Substance into Muscle, Percutaneous Approach (ICD-10-PCS; 2020-10-30)
PROC: 3E033NZ Introduction of Analgesics, Hypnotics, Sedatives into Peripheral Vein, Percutaneous Approach (ICD-10-PCS; 2020-10-30)
PROC: 3E033GC Introduction of Other Therapeutic Substance into Peripheral Vein, Percutaneous Approach (ICD-10-PCS; 2020-10-30)
PROC: 3E0337Z Introduction of Electrolytic and Water Balance Substance into Peripheral Vein, Percutaneous Approach (ICD-10-PCS; 2020-10-30)
DX: D21.9 Benign neoplasm of connective and other soft tissue, unspecified (principal); N94.6 Dysmenorrhea, unspecified; I10 Essential (primary) hypertension; D64.9 Anemia, unspecified; D72.829 Elevated white blood cell count, unspecified; N92.0 Excessive and frequent menstruation with regular cycle; D57.3 Sickle-cell trait; R06.02 Shortness of breath; E66.01 Morbid (severe) obesity due to excess calories; Z68.41 Body mass index [BMI] 40.0-44.9, adult; J18.9 Pneumonia, unspecified organism; Z29.9 Encounter for prophylactic measures, unspecified; Z86.16 Personal history of COVID-19
CPT/HCPCS: 36415; 71045-TC-FY; 71275-TC; 74177-TC; 80053; 81003; 82550; 83690; 83735; 84100; 84484; 84703; 85025; 85045; 85379; 85610; 85730; 86850; 86900; 86901; 87086; 87491; 87591; 93005; 93010; 93308; 94761; 96365; 96366; 96367; 96372; 96375; 96376; 99285-25; C9803; G0378; Q9967; U0003; U0005

== ENCOUNTER 2021-01-09 20:56 | Emergency (ER) | payer OTHER ==
[2021-01-09 21:11] VITALS: BP 129/87; PULSE 90; TEMP 99.3; BMI 44.7
[2021-01-09] MEDS ORDERED: ACETAMINOPHEN 500 MG TABLET (FP) PO ONE (21:33)
[2021-01-09] MEDS ORDERED: ACETAMINOPHEN 500 MG TABLET (FP) ONE (21:38)
[2021-01-09] MEDS ORDERED: AMOX TR/POT CLAV 875MG/125MG TABLETS (FP) PO ONE (22:09)
[2021-01-09] MEDS ORDERED: AMOX TR/POT CLAV 875MG/125MG TABLETS (FP) ONE (22:20)
== END 2021-01-09 22:38 | disposition home or self-care (01) ==
LOC: JERFT 20:56
DX: K02.9 Dental caries, unspecified (principal)
CPT/HCPCS: 99283-25; C9803; U0003; U0005

== ENCOUNTER 2021-06-12 18:51 | Emergency (ER) | payer OTHER ==
[2021-06-12 19:02] VITALS: BP 134/95; PULSE 85; TEMP 98.2; BMI 44.1
[2021-06-12] MEDS ORDERED: KETOROLAC TROMETHAMINE 30 MG/1 ML VIAL IM ONE (19:43)
[2021-06-12] MEDS ORDERED: KETOROLAC TROMETHAMINE 30 MG/1 ML VIAL ONE (19:44)
== END 2021-06-12 21:27 | disposition home or self-care (01) ==
LOC: JER 18:51 → JERFT 18:51
PROC: 3E0233Z Introduction of Anti-inflammatory into Muscle, Percutaneous Approach (ICD-10-PCS; principal; 2021-06-12)
DX: M25.561 Pain in right knee (principal)
CPT/HCPCS: 73562-TC-RT-FY; 96372; 99284-25

== ENCOUNTER 2021-07-07 09:25 | Emergency (ER) | payer OTHER ==
[2021-07-07 09:36] VITALS: TEMP 98; BMI 43.6
[2021-07-07] MEDS ORDERED: ONDANSETRON 4 MG/2 ML VIAL IVPUSH ONE (09:53)
[2021-07-07] MEDS ORDERED: SODIUM CHLORIDE 0.9% 1000 ML INFUS.BAG IV ONE ×2 (09:53→11:21)
[2021-07-07] MEDS ORDERED: ONDANSETRON 4 MG/2 ML VIAL ONE (10:04)
[2021-07-07 10:14] LABS: BASO % 0.6 % (0-2.0); EOS % 0.9 % (0-4.5); HEMATOCRIT 32.5 % (32.4-45.2); LYMPH % 13.9 % (8-40); MCH 25.9 pg (25.7-33.7); MCHC 33.9 g/dl (32.0-36.0); MEAN CELL VOLUME 76.4 fl (80-96); MEAN PLT VOLUME 8.4 fl (7.5-11.1); MONO % 6.9 % (3.8-10.2); NEUT % 77.7 % (42.8-82.8); PLATELET COUNT 307 10^3/uL (134-434); RBC 4.26 M/mm3 (3.60-5.2); RDW 16.9 % (11.6-15.6); WHITE BLOOD COUNT 9.1 K/mm3 (4.0-10.0)
[2021-07-07 10:21] LABS: INR 1.19 (0.83-1.09); PROTHROMBIN TIME (PATIENT) 13.7 SEC (9.7-13.0)
[2021-07-07 10:23] LABS: ACTIVATED PTT 36.7 SECONDS (25.2-36.5); CHLORIDE 108 mmol/L (98-107); SODIUM 139 mmol/L (136-145)
[2021-07-07 10:26] LABS: ALBUMIN 3.3 g/dl (3.4-5.0); ANION GAP 6 MMOL/L (8-16); CALCIUM 9.2 mg/dL (8.5-10.1); CO2 26 mmol/L (21-32); GLUCOSE,RANDOM 108 mg/dL (74-106); LIPASE 62 U/L (73-393)
[2021-07-07 10:29] LABS: CREATININE 0.7 mg/dL (0.55-1.3); SGOT/AST 7 U/L (15-37); SGPT/ALT 10 U/L (13-61)
[2021-07-07 10:31] LABS: BILIRUBIN,TOTAL 0.5 mg/dL (0.2-1); TOT PROT 7.5 g/dl (6.4-8.2)
[2021-07-07 10:32] LABS: ALK PHOS 100 U/L (45-117)
[2021-07-07 10:34] LABS: EPI CELLS 11 /uL (0-25.1); HYALINE CASTS 5 /uL (0-3.1); URINE APPEARANCE CLEAR; URINE BACTERIA 2 /uL (0-1359); URINE BILIRUBIN NEGATIVE (NEGATIVE); URINE COLOR ORANGE; URINE GLUCOSE (UA) NEGATIVE (NEGATIVE); URINE KETONE NEGATIVE (NEGATIVE); URINE LEUK ESTERASE NEGATIVE (NEGATIVE); URINE NITRITE NEGATIVE (NEGATIVE); URINE PROTEIN 1+ (NEGATIVE); URINE RBC 7934 /uL (0-23.9); URINE UROBILINOGEN 0.2 mg/dL (0.2-1.0); URINE WBC 14 /uL (0-25.8)
[2021-07-07 10:35] LABS: BLOOD UREA NITROGEN 2.8 mg/dL (7-18)
[2021-07-07] MEDS ORDERED: ACETAMINOPHEN 1000 MG/100 ML BAG IVPB ONE (11:21)
[2021-07-07] MEDS ORDERED: ACETAMINOPHEN INJECTION 100 ML IVPB ONE (11:28)
[2021-07-07 13:14] VITALS: BP 135/71; PULSE 90
== END 2021-07-07 13:14 | disposition home or self-care (01) ==
LOC: JER 09:25
PROC: 3E033GC Introduction of Other Therapeutic Substance into Peripheral Vein, Percutaneous Approach (ICD-10-PCS; principal; 2021-07-07)
DX: K52.9 Noninfective gastroenteritis and colitis, unspecified (principal); D25.9 Leiomyoma of uterus, unspecified
CPT/HCPCS: 36415; 74177-TC; 80053; 81003; 83690; 84703; 85025; 85610; 85730; 86850; 86900; 86901; 87086; 93005; 93010; 99285-25; Q9967

== ENCOUNTER 2021-08-11 11:01 | Emergency (ER) | payer OTHER ==
[2021-08-11 11:06] VITALS: BP 176/98; PULSE 104; TEMP 98.3; BMI 44.1
[2021-08-11] MEDS ORDERED: KETOROLAC TROMETHAMINE 30 MG/1 ML VIAL IVPUSH ONE (12:01)
[2021-08-11] MEDS ORDERED: SODIUM CHLORIDE 0.9% 500 ML INFUS.BAG IV ONE (12:01)
[2021-08-11] MEDS ORDERED: ONDANSETRON 4 MG/2 ML VIAL IVPUSH ONE (12:01)
[2021-08-11 12:16] LABS: EPI CELLS 16 /uL (0-25.1); HCG,QUALITATIVE URINE Negative; HYALINE CASTS 2 /uL (0-3.1); URINE APPEARANCE CLOUDY; URINE BACTERIA 87 /uL (0-1359); URINE BILIRUBIN NEGATIVE (NEGATIVE); URINE COLOR ORANGE; URINE GLUCOSE (UA) NEGATIVE (NEGATIVE); URINE KETONE NEGATIVE (NEGATIVE); URINE LEUK ESTERASE 1+ (NEGATIVE); URINE NITRITE NEGATIVE (NEGATIVE); URINE PROTEIN 1+ (NEGATIVE); URINE RBC 9826 /uL (0-23.9); URINE UROBILINOGEN 0.2 mg/dL (0.2-1.0); URINE WBC 135 /uL (0-25.8)
[2021-08-11] MEDS ORDERED: ONDANSETRON 4 MG/2 ML VIAL ONE (12:25)
[2021-08-11] MEDS ORDERED: KETOROLAC TROMETHAMINE 30 MG/1 ML VIAL ONE (12:25)
[2021-08-11 13:09] LABS: BASO % 0.3 % (0-2.0); EOS % 0.6 % (0-4.5); HEMOGLOBIN 10.4 GM/dL (10.7-15.3); LYMPH % 9.1 % (8-40); MCH 24.1 pg (25.7-33.7); MCHC 33.5 g/dl (32.0-36.0); MEAN CELL VOLUME 71.9 fl (80-96); MEAN PLT VOLUME 8.1 fl (7.5-11.1); MONO % 6.3 % (3.8-10.2); NEUT % 83.7 % (42.8-82.8); PLATELET COUNT 343 10^3/uL (134-434); RBC 4.32 M/mm3 (3.60-5.2); RDW 18.1 % (11.6-15.6); WHITE BLOOD COUNT 9.8 K/mm3 (4.0-10.0)
[2021-08-11] MEDS ORDERED: diazePAM CARPU-JECT 10 MG/2 ML DISP.SYRIN IVPUSH ONE (13:16)
[2021-08-11 13:22] LABS: CHLORIDE 106 mmol/L (98-107); SODIUM 139 mmol/L (136-145)
[2021-08-11 13:23] LABS: ALBUMIN 3.6 g/dl (3.4-5.0); ANION GAP 7 MMOL/L (8-16); CALCIUM 8.9 mg/dL (8.5-10.1); CO2 26 mmol/L (21-32); GLUCOSE,RANDOM 100 mg/dL (74-106)
[2021-08-11 13:26] LABS: CREATININE 0.6 mg/dL (0.55-1.3); SGPT/ALT 12 U/L (13-61)
[2021-08-11 13:27] LABS: SGOT/AST 11 U/L (15-37)
[2021-08-11 13:28] LABS: BILIRUBIN,TOTAL 0.4 mg/dL (0.2-1); TOT PROT 7.8 g/dl (6.4-8.2)
[2021-08-11 13:29] LABS: ALK PHOS 110 U/L (45-117)
[2021-08-11 13:32] LABS: BLOOD UREA NITROGEN 2.6 mg/dL (7-18)
[2021-08-11] MEDS ORDERED: diazePAM CARPU-JECT 10 MG/2 ML DISP.SYRIN ONE (13:50)
== END 2021-08-11 14:49 | disposition home or self-care (01) ==
LOC: JER 11:01
PROC: 3E033GC Introduction of Other Therapeutic Substance into Peripheral Vein, Percutaneous Approach (ICD-10-PCS; principal; 2021-08-11)
DX: D25.9 Leiomyoma of uterus, unspecified (principal); G89.29 Other chronic pain
CPT/HCPCS: 36415; 80053; 81003; 84703; 85025; 87086; 99284-25

== ENCOUNTER 2021-09-08 15:36 | Emergency (ER) | payer OTHER ==
[2021-09-08 15:44] VITALS: BP 109/76; PULSE 101; TEMP 98.5; BMI 44.9
[2021-09-08] MEDS ORDERED: SODIUM CHLORIDE 1,000 ML IV STA (15:54)
[2021-09-08] MEDS ORDERED: ACETAMINOPHEN 1000 MG/100 ML BAG IVPB ONE (16:07)
[2021-09-08] MEDS ORDERED: METOCLOPRAMIDE HCL INJECTION 10 MG/2 ML VIAL IVPUSH ONE (16:08)
[2021-09-08] MEDS ORDERED: ACETAMINOPHEN INJECTION 100 ML IVPB ONE (16:24)
[2021-09-08] MEDS ORDERED: METOCLOPRAMIDE HCL INJECTION 10 MG/2 ML VIAL ONE (16:24)
[2021-09-08 17:10] LABS: BASO % 0.5 % (0-2.0); EOS % 1.5 % (0-4.5); HEMATOCRIT 29.9 % (32.4-45.2); HEMOGLOBIN 9.9 GM/dL (10.7-15.3); LYMPH % 14.7 % (8-40); MCH 22.9 pg (25.7-33.7); MEAN CELL VOLUME 69.5 fl (80-96); MEAN PLT VOLUME 8.2 fl (7.5-11.1); MONO % 9.3 % (3.8-10.2); PLATELET COUNT 311 10^3/uL (134-434); RDW 19.7 % (11.6-15.6); WHITE BLOOD COUNT 8.7 K/mm3 (4.0-10.0)
[2021-09-08 17:31] LABS: ALBUMIN 3.4 g/dl (3.4-5.0); BLOOD UREA NITROGEN 4.8 mg/dL (7-18)
[2021-09-08 17:34] LABS: CREATININE 0.7 mg/dL (0.55-1.3)
[2021-09-08 17:35] LABS: BILIRUBIN,TOTAL 0.4 mg/dL (0.2-1)
[2021-09-08] MEDS ORDERED: KETOROLAC TROMETHAMINE 30 MG/1 ML VIAL IVPUSH ONE (17:35)
[2021-09-08 17:36] LABS: TOT PROT 7.4 g/dl (6.4-8.2)
[2021-09-08] MEDS ORDERED: KETOROLAC TROMETHAMINE 30 MG/1 ML VIAL ONE (17:43)
[2021-09-08 19:36] LABS: EPI CELLS 12 /uL (0-25.1); HYALINE CASTS 2 /uL (0-3.1); PH,URINE 5.5 (5.0-8.0); URINE APPEARANCE CLEAR; URINE BACTERIA 48 /uL (0-1359); URINE BILIRUBIN NEGATIVE (NEGATIVE); URINE COLOR YELLOW; URINE GLUCOSE (UA) NEGATIVE (NEGATIVE); URINE KETONE NEGATIVE (NEGATIVE); URINE LEUK ESTERASE 1+ (NEGATIVE); URINE NITRITE NEGATIVE (NEGATIVE); URINE PROTEIN 1+ (NEGATIVE); URINE RBC 7407 /uL (0-23.9); URINE UROBILINOGEN 0.2 mg/dL (0.2-1.0); URINE WBC 103 /uL (0-25.8)
== END 2021-09-08 19:07 | disposition home or self-care (01) ==
LOC: JER 15:36
PROC: 3E033GC Introduction of Other Therapeutic Substance into Peripheral Vein, Percutaneous Approach (ICD-10-PCS; principal; 2021-09-08)
DX: D25.9 Leiomyoma of uterus, unspecified (principal)
CPT/HCPCS: 36415; 80053; 81003; 83690; 84703; 85025; 87086; 99284-25

== ENCOUNTER 2021-10-02 18:51 | Observation (INO) | payer OTHER ==
[2021-10-02 19:30] VITALS: TEMP 99.9; BMI 44.6
[2021-10-02] MEDS ORDERED: ACETAMINOPHEN 325 MG TABLET (FP) PO ONE (20:30)
[2021-10-02] MEDS ORDERED: ALBUTEROL SO4 0.083% IH SOL 2.5 MG/3 ML VIAL.NEB. NEB ONE ×2 (20:52→21:46)
[2021-10-02] MEDS ORDERED: ALBUTEROL SO4 0.5 % INH SOLN 2.5 MG/0.5 ML VIAL.NEB. NEB ONE (21:22)
[2021-10-02] MEDS ORDERED: ACETAMINOPHEN 325 MG TABLET (FP) ONE (21:22)
[2021-10-02] MEDS ORDERED: predniSONE 20 MG TABLET (UD) PO ONE (22:26)
[2021-10-02] MEDS ORDERED: predniSONE 20 MG TABLET (UD) ONE (22:26)
[2021-10-02] MEDS ORDERED: ALBUTEROL SO4 2.5/IPRATROPIUM 0.5 INH SOL 3 ML VIAL.NEB. NEB ONE ×2 (22:26)
[2021-10-03 01:15] LABS: BASO % 0.2 % (0-2.0); EOS % 0.8 % (0-4.5); HEMATOCRIT 30.9 % (32.4-45.2); HEMOGLOBIN 10.1 GM/dL (10.7-15.3); LYMPH % 10.6 % (8-40); MCH 22.5 pg (25.7-33.7); MCHC 32.7 g/dl (32.0-36.0); MEAN PLT VOLUME 8.2 fl (7.5-11.1); MONO % 7.3 % (3.8-10.2); NEUT % 81.1 % (42.8-82.8); PLATELET COUNT 308 10^3/uL (134-434); RBC 4.49 M/mm3 (3.60-5.2); RDW 21.2 % (11.6-15.6); WHITE BLOOD COUNT 11.3 K/mm3 (4.0-10.0)
[2021-10-03 02:08] LABS: CALCIUM 8.9 mg/dL (8.5-10.1)
[2021-10-03 02:09] LABS: ALBUMIN 3.4 g/dl (3.4-5.0); BLOOD UREA NITROGEN 5.4 mg/dL (7-18)
[2021-10-03 02:12] LABS: CREATININE 0.8 mg/dL (0.55-1.3)
[2021-10-03 02:14] LABS: BILIRUBIN,TOTAL 0.3 mg/dL (0.2-1); TOT PROT 7.8 g/dl (6.4-8.2)
[2021-10-03 04:50] VITALS: PULSE 90
[2021-10-03] MEDS ORDERED: ASPIRIN 81 MG CHEWABLE TABLETS PO ONE (05:09)
[2021-10-03 05:37] LABS: ANISOCYTOSIS 3+; MACROCYTOSIS 1+; OVALOCYTE 1+; ROULEAU 1+; TOXIC GRANULATION 0
[2021-10-03] MEDS ORDERED: ASPIRIN 81 MG CHEWABLE TABLETS ONE (05:45)
[2021-10-03] MEDS ORDERED: ENOXAPARIN NA (PORCINE) 40 MG/0.4 ML DISP.SYRIN SQ ONE (07:41)
[2021-10-03] MEDS ORDERED: ALBUTEROL SO4 HFA INHALER IH PRN (09:04)
[2021-10-03] MEDS ORDERED: ENOXAPARIN NA (PORCINE) 40 MG/0.4 ML DISP.SYRIN SQ SCH (10:00)
[2021-10-03 15:44] LABS: URINE APPEARANCE CLEAR; URINE BILIRUBIN NEGATIVE (NEGATIVE); URINE COLOR YELLOW; URINE GLUCOSE (UA) NEGATIVE (NEGATIVE); URINE KETONE NEGATIVE (NEGATIVE); URINE LEUK ESTERASE NEGATIVE (NEGATIVE); URINE NITRITE NEGATIVE (NEGATIVE); URINE PROTEIN NEGATIVE (NEGATIVE); URINE UROBILINOGEN 0.2 mg/dL (0.2-1.0)
[2021-10-03 16:43] VITALS: BP 119/78
[2021-10-03] MEDS ORDERED: ALBUTEROL SO4 2.5/IPRATROPIUM 0.5 INH SOL 3 ML VIAL.NEB. NEB ONE ×2 (21:42→21:59)
[2021-10-04] MEDS ORDERED: ALBUTEROL SO4 HFA INHALER IH ONE (00:06)
== END 2021-10-04 01:00 | disposition home or self-care (01) ==
LOC: JER 18:51 → JERBED 10-03 02:00
PROVIDERS: ADMIT Internal Medicine; ATTEND Nurse Practitioner Family
PROC: 3E0F7GC Introduction of Other Therapeutic Substance into Respiratory Tract, Via Natural or Artificial Opening (ICD-10-PCS; principal; 2021-10-03)
DX: D50.9 Iron deficiency anemia, unspecified (principal); N94.6 Dysmenorrhea, unspecified; D25.9 Leiomyoma of uterus, unspecified; D57.3 Sickle-cell trait; N92.0 Excessive and frequent menstruation with regular cycle; N80.9 Endometriosis, unspecified; R05.9 Cough, unspecified; R50.9 Fever, unspecified; E66.01 Morbid (severe) obesity due to excess calories; Z68.41 Body mass index [BMI] 40.0-44.9, adult; R07.89 Other chest pain; R79.89 Other specified abnormal findings of blood chemistry; Z29.8 Encounter for other specified prophylactic measures; Z86.16 Personal history of COVID-19; R06.02 Shortness of breath
CPT/HCPCS: 0241U-QW; 36415; 71046-TC-FY; 71275-TC; 80053; 81003; 82607; 82728; 83540; 83550; 84484; 84703; 85025; 85379; 87086; 93005; 93010; 94640; 99285-25; G0378; Q9967

== ENCOUNTER 2022-02-28 08:30 | Emergency (ER) | payer OTHER ==
[2022-02-28 08:37] VITALS: BMI 44.1
[2022-02-28] MEDS ORDERED: ONDANSETRON 4 MG/2 ML VIAL IVPB ONE (09:31)
[2022-02-28] MEDS ORDERED: KETOROLAC TROMETHAMINE 30 MG/1 ML VIAL IVPUSH ONE (09:32)
[2022-02-28] MEDS ORDERED: SODIUM CHLORIDE 0.9% 500 ML INFUS.BAG IV ONE (09:32)
[2022-02-28] MEDS ORDERED: ONDANSETRON 4 MG/2 ML VIAL ONE (09:44)
[2022-02-28] MEDS ORDERED: KETOROLAC TROMETHAMINE 30 MG/1 ML VIAL ONE (09:44)
[2022-02-28 10:39] LABS: EPI CELLS 36 /uL (0-25.1); HYALINE CASTS 14 /uL (0-3.1); URINE APPEARANCE CLOUDY; URINE BACTERIA 14 /uL (0-1359); URINE BILIRUBIN 1+ (NEGATIVE); URINE COLOR ORANGE; URINE GLUCOSE (UA) NEGATIVE (NEGATIVE); URINE KETONE TRACE (NEGATIVE); URINE LEUK ESTERASE 2+ (NEGATIVE); URINE NITRITE NEGATIVE (NEGATIVE); URINE PROTEIN 2+ (NEGATIVE); URINE RBC 10663 /uL (0-23.9); URINE WBC 74 /uL (0-25.8)
[2022-02-28 10:40] LABS: HCG,QUALITATIVE URINE Negative
[2022-02-28 10:43] LABS: BASO % 0.2 % (0-2.0); EOS % 0.6 % (0-4.5); HEMATOCRIT 37.2 % (32.4-45.2); HEMOGLOBIN 12.8 GM/dL (10.7-15.3); LYMPH % 11.8 % (8-40); MCH 28.1 pg (25.7-33.7); MCHC 34.4 g/dl (32.0-36.0); MEAN CELL VOLUME 81.7 fl (80-96); MEAN PLT VOLUME 8.3 fl (7.5-11.1); MONO % 8.3 % (3.8-10.2); NEUT % 79.1 % (42.8-82.8); PLATELET COUNT 272 10^3/uL (134-434); RBC 4.55 M/mm3 (3.60-5.2); RDW 16.3 % (11.6-15.6); WHITE BLOOD COUNT 12.3 K/mm3 (4.0-10.0)
[2022-02-28 10:51] LABS: ACTIVATED PTT 35.6 SECONDS (25.2-36.5); INR 1.24 (0.83-1.09); PROTHROMBIN TIME (PATIENT) 14.3 SEC (9.7-13.0)
[2022-02-28 11:01] LABS: CALCIUM 9.4 mg/dL (8.5-10.1)
[2022-02-28 11:02] LABS: ALBUMIN 3.5 g/dl (3.4-5.0); BLOOD UREA NITROGEN 5.1 mg/dL (7-18)
[2022-02-28 11:05] LABS: CREATININE 0.8 mg/dL (0.55-1.3)
[2022-02-28 11:06] LABS: TOT PROT 7.9 g/dl (6.4-8.2)
[2022-02-28 11:07] LABS: BILIRUBIN,TOTAL 0.8 mg/dL (0.2-1)
[2022-02-28] MEDS ORDERED: CEFTRIAXONE 1 GM in DEXTROSE 5%-WATER - 50 ML IVPB ONE (11:20)
[2022-02-28] MEDS ORDERED: CEFTRIAXONE 1 GM/50 ML BAG ONE (11:30)
[2022-02-28 11:44] VITALS: BP 122/71; PULSE 78; RESP 20; TEMP 98.3
== END 2022-02-28 13:11 | disposition home or self-care (01) ==
LOC: JER 08:30
PROC: 3E03329 Introduction of Other Anti-infective into Peripheral Vein, Percutaneous Approach (ICD-10-PCS; principal; 2022-02-28)
PROC: 3E0333Z Introduction of Anti-inflammatory into Peripheral Vein, Percutaneous Approach (ICD-10-PCS; 2022-02-28)
PROC: 3E033GC Introduction of Other Therapeutic Substance into Peripheral Vein, Percutaneous Approach (ICD-10-PCS; 2022-02-28)
DX: R11.0 Nausea (principal)
CPT/HCPCS: 36415; 80053; 81003; 83690; 84703; 85025; 85610; 85730; 93005; 93010; 99284-25

== ENCOUNTER 2022-05-14 16:45 | Emergency (ER) | payer OTHER ==
[2022-05-14 17:05] VITALS: BP 126/82; PULSE 91; RESP 19; TEMP 98.1; BMI 41.5
[2022-05-14] MEDS ORDERED: METHOCARBAMOL 500 MG TABLET ONE (17:31)
[2022-05-14] MEDS ORDERED: METHOCARBAMOL 500 MG TABLET PO ONE (17:31)
[2022-05-14] MEDS ORDERED: KETOROLAC TROMETHAMINE 30 MG/1 ML VIAL IM ONE (17:31)
[2022-05-14] MEDS ORDERED: KETOROLAC TROMETHAMINE 30 MG/1 ML VIAL ONE (17:31)
== END 2022-05-14 18:45 | disposition home or self-care (01) ==
LOC: JERFT 16:45
PROC: 3E023GC Introduction of Other Therapeutic Substance into Muscle, Percutaneous Approach (ICD-10-PCS; principal; 2022-05-14)
DX: M54.50 Low back pain, unspecified (principal)
CPT/HCPCS: 99284-25

== ENCOUNTER 2022-06-25 14:26 | Emergency (ER) | payer OTHER ==
[2022-06-25 14:34] VITALS: BP 144/97; PULSE 103; RESP 18; TEMP 98.4; BMI 46.5
[2022-06-25] MEDS ORDERED: ACETAMINOPHEN 500 MG TABLET (FP) PO ONE (15:15)
[2022-06-25] MEDS ORDERED: ACETAMINOPHEN 500 MG TABLET (FP) ONE (15:22)
[2022-06-25] MEDS ORDERED: METOCLOPRAMIDE HCL INJECTION 10 MG/2 ML VIAL IM ONE (16:39)
[2022-06-25] MEDS ORDERED: METOCLOPRAMIDE HCL INJECTION 10 MG/2 ML VIAL ONE (16:41)
== END 2022-06-25 17:37 | disposition home or self-care (01) ==
LOC: JER 14:26 → JERFT 14:26
PROC: 3E023GC Introduction of Other Therapeutic Substance into Muscle, Percutaneous Approach (ICD-10-PCS; principal; 2022-06-25)
DX: R09.81 Nasal congestion (principal); R51.9 Headache, unspecified; J06.9 Acute upper respiratory infection, unspecified; Z20.822 Contact with and (suspected) exposure to COVID-19
CPT/HCPCS: 0241U-QW; 71046-TC-FY; 99284-25

== ENCOUNTER 2022-10-26 19:08 | Emergency (ER) | payer OTHER ==
[2022-10-26 19:17] VITALS: RESP 18; TEMP 99; BMI 40.7
[2022-10-26] MEDS ORDERED: LACTATED RINGERS SOLUTION 1,000 ML IV STA (20:19)
[2022-10-26] MEDS ORDERED: BISMUTH SUBSALICYLATE 262 MG/15 ML BTL PO ONE (20:20)
[2022-10-26 21:34] LABS: BASO % 0.5 % (0-2.0); EOS % 0.8 % (0-4.5); HEMATOCRIT 40.2 % (32.4-45.2); MCH 28.1 pg (25.7-33.7); MCHC 32.4 g/dl (32.0-36.0); MEAN CELL VOLUME 86.7 fl (80-96); MONO % 8.2 % (3.8-10.2); NEUT % 67.5 % (42.8-82.8); RBC 4.64 M/mm3 (3.60-5.2); RDW 15.1 % (11.6-15.6); WHITE BLOOD COUNT 9.8 K/mm3 (4.0-10.0)
[2022-10-26 21:35] LABS: URINE APPEARANCE CLEAR; URINE BILIRUBIN NEGATIVE (NEGATIVE); URINE COLOR YELLOW; URINE GLUCOSE (UA) NEGATIVE (NEGATIVE); URINE KETONE NEGATIVE (NEGATIVE); URINE LEUK ESTERASE NEGATIVE (NEGATIVE); URINE NITRITE NEGATIVE (NEGATIVE); URINE PROTEIN NEGATIVE (NEGATIVE); URINE UROBILINOGEN 0.2 mg/dL (0.2-1.0)
[2022-10-26 22:09] LABS: MEAN PLT VOLUME 9.9 fl (7.5-11.1); PLATELET COUNT 220 10^3/uL (134-434); POTASSIUM 3.7 mmol/L (3.5-5.1)
[2022-10-26 22:11] LABS: CALCIUM 9.2 mg/dL (8.5-10.1)
[2022-10-26 22:12] LABS: ALBUMIN 3.3 g/dl (3.4-5.0)
[2022-10-26 22:15] LABS: CREATININE 0.6 mg/dL (0.55-1.3)
[2022-10-26 22:17] LABS: BILIRUBIN,TOTAL 0.4 mg/dL (0.2-1); TOT PROT 7.3 g/dl (6.4-8.2)
[2022-10-26 22:28] VITALS: BP 140/85; PULSE 72
== END 2022-10-26 22:43 | disposition home or self-care (01) ==
LOC: JER 19:08
PROC: 3E0337Z Introduction of Electrolytic and Water Balance Substance into Peripheral Vein, Percutaneous Approach (ICD-10-PCS; principal; 2022-10-26)
DX: R19.7 Diarrhea, unspecified (principal); R53.1 Weakness; R10.9 Unspecified abdominal pain; E86.0 Dehydration; R53.83 Other fatigue; Z20.822 Contact with and (suspected) exposure to COVID-19
CPT/HCPCS: 0241U-QW; 36415; 80053; 81003; 83690; 83735; 85025; 99284-25

== ENCOUNTER 2022-12-24 05:24 | Day surgery (SDC) | payer OTHER ==
[2022-12-20 12:39] VITALS: BMI 46.5
[2022-12-24 10:37] VITALS: TEMP 98.4
[2022-12-24 11:12] VITALS: BP 100/69; PULSE 72; RESP 20
== END 2022-12-24 11:10 | disposition home or self-care (01) ==
LOC: JASU-ENDO 05:24
PROVIDERS: ATTEND Internal Medicine Gastroenterology
PROC: 0DBL8ZX Excision of Transverse Colon, Via Natural or Artificial Opening Endoscopic, Diagnostic (ICD-10-PCS; 2022-12-24)
PROC: 0DBN8ZX Excision of Sigmoid Colon, Via Natural or Artificial Opening Endoscopic, Diagnostic (ICD-10-PCS; 2022-12-24)
PROC: 0DBC8ZX Excision of Ileocecal Valve, Via Natural or Artificial Opening Endoscopic, Diagnostic (ICD-10-PCS; 2022-12-24)
PROC: 0DBM8ZX Excision of Descending Colon, Via Natural or Artificial Opening Endoscopic, Diagnostic (ICD-10-PCS; 2022-12-24)
PROC: 0DBH8ZX Excision of Cecum, Via Natural or Artificial Opening Endoscopic, Diagnostic (ICD-10-PCS; 2022-12-24)
PROC: 0DBK8ZX Excision of Ascending Colon, Via Natural or Artificial Opening Endoscopic, Diagnostic (ICD-10-PCS; principal; 2022-12-24 09:30)
DX: Z12.11 Encounter for screening for malignant neoplasm of colon (principal); K63.5 Polyp of colon; K64.8 Other hemorrhoids
CPT/HCPCS: 88305-TC

== ENCOUNTER 2023-06-01 10:07 | Emergency (ER) | payer OTHER ==
[2023-06-01 10:15] VITALS: BP 141/97; PULSE 78; RESP 18; TEMP 98.6; BMI 43.6
[2023-06-01 10:54] LABS: URINE APPEARANCE CLEAR; URINE BILIRUBIN NEGATIVE (NEGATIVE); URINE COLOR YELLOW; URINE GLUCOSE (UA) NEGATIVE (NEGATIVE); URINE KETONE NEGATIVE (NEGATIVE); URINE LEUK ESTERASE NEGATIVE (NEGATIVE); URINE NITRITE NEGATIVE (NEGATIVE); URINE PROTEIN NEGATIVE (NEGATIVE); URINE UROBILINOGEN 0.2 mg/dL (0.2-1.0)
[2023-06-01] MEDS ORDERED: ONDANSETRON 4 MG/2 ML VIAL ONE (11:32)
[2023-06-01] MEDS ORDERED: KETOROLAC TROMETHAMINE 30 MG/1 ML VIAL ONE ×2 (11:32→19:00)
[2023-06-01] MEDS: KETOROLAC TROMETHAMINE 30 MG/1 ML VIAL IVPUSH ONE (11:50)
[2023-06-01] MEDS: ONDANSETRON 4 MG/2 ML VIAL IVPUSH ONE (11:50)
[2023-06-01] MEDS: SODIUM CHLORIDE 0.9% 500 ML INFUS.BAG IV ONE (11:50)
[2023-06-01 12:06] LABS: BASO % 0.4 % (0-2.0); EOS % 2.8 % (0-4.5); HEMATOCRIT 36.6 % (32.4-45.2); HEMOGLOBIN 12.9 GM/dL (10.7-15.3); LYMPH % 19.6 % (8-40); MCH 29.9 pg (25.7-33.7); MCHC 35.3 g/dl (32.0-36.0); MEAN CELL VOLUME 84.6 fl (80-96); MEAN PLT VOLUME 8.6 fl (7.5-11.1); MONO % 7.9 % (3.8-10.2); NEUT % 69.3 % (42.8-82.8); PLATELET COUNT 240 10^3/uL (134-434); RBC 4.32 M/mm3 (3.60-5.2); RDW 14.6 % (11.6-15.6); WHITE BLOOD COUNT 7.2 K/mm3 (4.0-10.0)
[2023-06-01 13:30] LABS: POTASSIUM 3.8 mmol/L (3.5-5.1)
[2023-06-01 13:33] LABS: CALCIUM 9.6 mg/dL (8.5-10.1)
[2023-06-01 13:34] LABS: ALBUMIN 3.2 g/dl (3.4-5.0); BLOOD UREA NITROGEN 5.2 mg/dL (7-18)
[2023-06-01 13:37] LABS: CREATININE 0.7 mg/dL (0.55-1.3)
[2023-06-01 13:38] LABS: BILIRUBIN,TOTAL 0.6 mg/dL (0.2-1); TOT PROT 7.1 g/dl (6.4-8.2)
[2023-06-01] MEDS ORDERED: ACETAMINOPHEN INJECTION 100 ML IVPB ONE (15:36)
[2023-06-01] MEDS: ACETAMINOPHEN 1000 MG/100 ML BAG IVPB ONE (15:45)
[2023-06-01] MEDS ORDERED: KETOROLAC TROMETHAMINE 30 MG/1 ML VIAL IVPUSH ONE (18:38)
== END 2023-06-01 19:19 | disposition home or self-care (01) ==
LOC: JER 10:07
PROC: 3E033NZ Introduction of Analgesics, Hypnotics, Sedatives into Peripheral Vein, Percutaneous Approach (ICD-10-PCS; principal; 2023-06-01)
PROC: 3E0303Z Introduction of Anti-inflammatory into Peripheral Vein, Open Approach (ICD-10-PCS; 2023-06-01)
PROC: 3E030GC Introduction of Other Therapeutic Substance into Peripheral Vein, Open Approach (ICD-10-PCS; 2023-06-01)
DX: R10.32 Left lower quadrant pain (principal); R30.0 Dysuria; R19.7 Diarrhea, unspecified; R11.0 Nausea; R51.9 Headache, unspecified; R05.9 Cough, unspecified; Z20.822 Contact with and (suspected) exposure to COVID-19
CPT/HCPCS: 0241U-QW; 36415; 74177-TC; 76856-TC; 80053; 81003; 83690; 85025; 87086; 99285-25; J0131; Q9967

== ENCOUNTER 2023-06-10 04:00 | Emergency (ER) | payer OTHER ==
[2023-06-10 04:12] VITALS: BP 150/96; PULSE 95; RESP 20; TEMP 98.5; BMI 46.5
[2023-06-10] MEDS ORDERED: METOCLOPRAMIDE HCL INJECTION 10 MG/2 ML VIAL ONE (04:34)
[2023-06-10] MEDS ORDERED: ACETAMINOPHEN INJECTION 100 ML IVPB ONE (04:37)
[2023-06-10] MEDS: ACETAMINOPHEN 1000 MG/100 ML BAG IVPB ONE (04:39)
[2023-06-10] MEDS: METOCLOPRAMIDE HCL INJECTION 10 MG/2 ML VIAL IVPUSH ONE (04:46)
[2023-06-10] MEDS: SODIUM CHLORIDE 1,000 ML IV STA (04:46)
[2023-06-10 05:06] LABS: BASO % 0.7 % (0-2.0); EOS % 3.2 % (0-4.5); HEMATOCRIT 40.2 % (32.4-45.2); HEMOGLOBIN 13.5 GM/dL (10.7-15.3); LYMPH % 25.6 % (8-40); MCH 28.8 pg (25.7-33.7); MCHC 33.6 g/dl (32.0-36.0); MEAN CELL VOLUME 85.7 fl (80-96); MEAN PLT VOLUME 9.3 fl (7.5-11.1); MONO % 6.8 % (3.8-10.2); NEUT % 63.7 % (42.8-82.8); PLATELET COUNT 291 10^3/uL (134-434); RBC 4.69 M/mm3 (3.60-5.2); RDW 14.8 % (11.6-15.6); WHITE BLOOD COUNT 9.3 K/mm3 (4.0-10.0)
[2023-06-10 05:26] LABS: POTASSIUM 4.5 mmol/L (3.5-5.1)
[2023-06-10 05:28] LABS: CALCIUM 9.1 mg/dL (8.5-10.1)
[2023-06-10 05:29] LABS: ALBUMIN 3.4 g/dl (3.4-5.0); BLOOD UREA NITROGEN 7.3 mg/dL (7-18)
[2023-06-10 05:32] LABS: CREATININE 0.7 mg/dL (0.55-1.3)
[2023-06-10 05:34] LABS: BILIRUBIN,TOTAL 0.6 mg/dL (0.2-1); TOT PROT 7.7 g/dl (6.4-8.2)
== END 2023-06-10 07:25 | disposition home or self-care (01) ==
LOC: JER 04:00
PROC: 3E033NZ Introduction of Analgesics, Hypnotics, Sedatives into Peripheral Vein, Percutaneous Approach (ICD-10-PCS; principal; 2023-06-10)
PROC: 3E033GC Introduction of Other Therapeutic Substance into Peripheral Vein, Percutaneous Approach (ICD-10-PCS; 2023-06-10)
PROC: 3E0337Z Introduction of Electrolytic and Water Balance Substance into Peripheral Vein, Percutaneous Approach (ICD-10-PCS; 2023-06-10)
DX: G43.909 Migraine, unspecified, not intractable, without status migrainosus (principal); R07.9 Chest pain, unspecified
CPT/HCPCS: 36415; 80053; 84484; 85025; 93005; 93010; 99284-25; J0131

== ENCOUNTER 2023-07-05 05:11 | Day surgery (SDC) | payer OTHER ==
[2023-06-27 13:32] VITALS: BMI 46.5
[2023-07-05] MEDS ORDERED: LIDOCAINE HCL/PF 1% SDV 5ML VIAL ONE (07:15)
[2023-07-05] MEDS ORDERED: TRIAMCINOLONE ACET 40MG/1ML VIAL ONE (07:15)
[2023-07-05] MEDS ORDERED: BUPIVACAINE HCL/PF 0.5% (5MG/ML) 10 ML VIAL ONE (07:15)
[2023-07-05 09:00] VITALS: PULSE 88
[2023-07-05] MEDS ORDERED: BUPIVACAINE HCL/PF 0.25% (2.5MG/ML) 10 ML VIAL ONE (10:19)
[2023-07-05] MEDS: LIDOCAINE HCL 1% PRESERVATIVE FREE - 30ML VIAL IJ ONE (10:34)
[2023-07-05] MEDS: TRIAMCINOLONE ACETONIDE 40 MG/ML 10 ML VIAL IJ ONE (10:35)
[2023-07-05] MEDS: BUPIVACAINE HCL/PF 0.25% (2.5MG/ML) 10 ML VIAL IJ ONE (10:35)
[2023-07-05] MEDS: IOHEXOL 180 MG/1 ML ML IJ ONE (10:35)
[2023-07-05 11:13] VITALS: BP 127/73; RESP 20; TEMP 97.8
[2023-07-05] MEDS ORDERED: ACETAMINOPHEN 500 MG TABLET (FP) PO PRN (11:18)
== END 2023-07-05 11:25 | disposition home or self-care (01) ==
LOC: JASU-SURG 05:11
PROVIDERS: ATTEND Pain Medicine Pain Medicine
PROC: 3E0U3BZ Introduction of Anesthetic Agent into Joints, Percutaneous Approach (ICD-10-PCS; 2023-07-05)
PROC: 3E0U33Z Introduction of Anti-inflammatory into Joints, Percutaneous Approach (ICD-10-PCS; principal; 2023-07-05 10:45)
DX: M16.12 Unilateral primary osteoarthritis, left hip (principal)
CPT/HCPCS: 76000-TC-FY

== ENCOUNTER 2023-07-14 22:27 | Emergency (ER) | payer OTHER ==
[2023-07-14 22:35] VITALS: BP 129/83; PULSE 93; RESP 18; TEMP 98.6; BMI 44.1
[2023-07-14] MEDS ORDERED: ACETAMINOPHEN INJECTION 100 ML IVPB ONE (23:49)
[2023-07-14] MEDS: ACETAMINOPHEN 1000 MG/100 ML BAG IVPB ONE (23:53)
[2023-07-14 23:57] LABS: BASO % 0.4 % (0-2.0); EOS % 1.6 % (0-4.5); HEMATOCRIT 38.6 % (32.4-45.2); HEMOGLOBIN 13.1 GM/dL (10.7-15.3); LYMPH % 18.3 % (8-40); MCH 28.9 pg (25.7-33.7); MCHC 34.1 g/dl (32.0-36.0); MEAN CELL VOLUME 84.7 fl (80-96); MEAN PLT VOLUME 7.9 fl (7.5-11.1); MONO % 7.9 % (3.8-10.2); NEUT % 71.8 % (42.8-82.8); PLATELET COUNT 281 10^3/uL (134-434); RBC 4.55 M/mm3 (3.60-5.2); RDW 15.1 % (11.6-15.6); WHITE BLOOD COUNT 11.1 K/mm3 (4.0-10.0)
[2023-07-15 00:12] LABS: POTASSIUM 4.1 mmol/L (3.5-5.1)
[2023-07-15 00:13] LABS: CALCIUM 9.3 mg/dL (8.5-10.1)
[2023-07-15 00:15] LABS: BLOOD UREA NITROGEN 6.9 mg/dL (7-18)
[2023-07-15 00:17] LABS: CREATININE 0.7 mg/dL (0.55-1.3)
[2023-07-15 00:19] LABS: BILIRUBIN,TOTAL 0.4 mg/dL (0.2-1)
[2023-07-15 00:41] LABS: PH,URINE 6.5 (5.0-8.0); URINE APPEARANCE CLEAR; URINE BILIRUBIN NEGATIVE (NEGATIVE); URINE COLOR YELLOW; URINE GLUCOSE (UA) NEGATIVE (NEGATIVE); URINE KETONE NEGATIVE (NEGATIVE); URINE LEUK ESTERASE NEGATIVE (NEGATIVE); URINE NITRITE NEGATIVE (NEGATIVE); URINE PROTEIN NEGATIVE (NEGATIVE); URINE UROBILINOGEN 0.2 mg/dL (0.2-1.0)
[2023-07-15] MEDS ORDERED: KETOROLAC TROMETHAMINE 15 MG/ML VIAL ONE (00:49)
[2023-07-15] MEDS: KETOROLAC TROMETHAMINE 15 MG/ML VIAL IVPUSH ONE (00:51)
== END 2023-07-15 01:48 | disposition home or self-care (01) ==
LOC: JER 22:27
PROC: 3E030NZ Introduction of Analgesics, Hypnotics, Sedatives into Peripheral Vein, Open Approach (ICD-10-PCS; principal; 2023-07-14)
PROC: 3E0303Z Introduction of Anti-inflammatory into Peripheral Vein, Open Approach (ICD-10-PCS; 2023-07-15)
DX: M54.50 Low back pain, unspecified (principal); G89.29 Other chronic pain
CPT/HCPCS: 36415; 80053; 81003; 85025; 87086; 99284-25; J0131

== ENCOUNTER 2023-07-25 04:36 | Emergency (ER) | payer OTHER ==
[2023-07-25 04:50] VITALS: BP 132/94; PULSE 101; RESP 20; BMI 44.1
[2023-07-25] MEDS ORDERED: LIDOCAINE 4% PATCH TP ONE (05:27)
[2023-07-25] MEDS ORDERED: ACETAMINOPHEN 500 MG TABLET (FP) ONE (05:29)
[2023-07-25] MEDS: LIDOCAINE 4% PATCH TP ONE (05:41)
[2023-07-25] MEDS: ACETAMINOPHEN 500 MG TABLET (FP) PO ONE (05:42)
[2023-07-25] MEDS ORDERED: LIDOCAINE PATCH REMOVAL MC SCH (22:00)
== END 2023-07-25 07:01 | disposition home or self-care (01) ==
LOC: JER 04:36
DX: M54.50 Low back pain, unspecified (principal)
CPT/HCPCS: 99283-25

== ENCOUNTER 2023-10-08 04:25 | Day surgery (SDC) | payer OTHER ==
[2023-10-03 11:59] VITALS: BMI 46.9
[2023-10-08 10:28] VITALS: TEMP 98
[2023-10-08 10:41] VITALS: RESP 18
[2023-10-08 11:14] VITALS: BP 129/78; PULSE 68
== END 2023-10-08 11:14 | disposition home or self-care (01) ==
LOC: JASU-ENDO 04:25
PROVIDERS: ATTEND Internal Medicine Gastroenterology
PROC: 0DB68ZX Excision of Stomach, Via Natural or Artificial Opening Endoscopic, Diagnostic (ICD-10-PCS; 2023-10-08)
PROC: 0DB98ZX Excision of Duodenum, Via Natural or Artificial Opening Endoscopic, Diagnostic (ICD-10-PCS; principal; 2023-10-08 10:00)
DX: K29.50 Unspecified chronic gastritis without bleeding (principal); K31.819 Angiodysplasia of stomach and duodenum without bleeding; I10 Essential (primary) hypertension
CPT/HCPCS: 88305-TC; 88342-TC

== ENCOUNTER 2023-10-24 12:02 | Emergency (ER) | payer OTHER ==
[2023-10-24 12:11] VITALS: BP 149/91; PULSE 79; RESP 18; TEMP 97.9; BMI 42.4
[2023-10-24] MEDS ORDERED: CYCLOBENZAPRINE HCL 10 MG TABLET (FP) ONE (13:15)
[2023-10-24] MEDS ORDERED: LIDOCAINE 4% PATCH TP ONE (13:15)
[2023-10-24] MEDS ORDERED: KETOROLAC TROMETHAMINE 30 MG/1 ML VIAL ONE (13:15)
[2023-10-24] MEDS ORDERED: ACETAMINOPHEN 500 MG TABLET (FP) ONE (13:16)
[2023-10-24] MEDS: CYCLOBENZAPRINE HCL 10 MG TABLET (FP) PO ONE (13:24)
[2023-10-24] MEDS: LIDOCAINE 4% PATCH TP ONE (13:24)
[2023-10-24] MEDS: ACETAMINOPHEN 500 MG TABLET (FP) PO ONE (13:27)
[2023-10-24] MEDS: KETOROLAC TROMETHAMINE 30 MG/1 ML VIAL IM ONE (13:27)
[2023-10-24] MEDS ORDERED: LIDOCAINE PATCH REMOVAL MC SCH (22:00)
== END 2023-10-24 14:28 | disposition home or self-care (01) ==
LOC: JERFT 12:02
PROC: 3E0233Z Introduction of Anti-inflammatory into Muscle, Percutaneous Approach (ICD-10-PCS; principal; 2023-10-24)
DX: S16.1XXA Strain of muscle, fascia and tendon at neck level, initial encounter (principal); M43.6 Torticollis; X50.9XXA Other and unspecified overexertion or strenuous movements or postures, initial encounter
CPT/HCPCS: 99284-25

== ENCOUNTER 2023-12-11 14:24 | Emergency (ER) | payer OTHER ==
[2023-12-11 14:44] VITALS: TEMP 99; BMI 41.5
[2023-12-11] MEDS ORDERED: KETOROLAC TROMETHAMINE 30 MG/1 ML VIAL ONE (15:09)
[2023-12-11 15:34] LABS: BASO % 0.4 % (0-2.0); EOS % 0.8 % (0-4.5); HEMATOCRIT 36.7 % (32.4-45.2); HEMOGLOBIN 12.5 GM/dL (10.7-15.3); MCH 28.7 pg (25.7-33.7); MCHC 34.1 g/dl (32.0-36.0); MEAN CELL VOLUME 84.1 fl (80-96); MEAN PLT VOLUME 8.6 fl (7.5-11.1); MONO % 9.2 % (3.8-10.2); NEUT % 70.6 % (42.8-82.8); PLATELET COUNT 219 10^3/uL (134-434); RBC 4.36 M/mm3 (3.60-5.2); RDW 15.2 % (11.6-15.6); WHITE BLOOD COUNT 8.7 K/mm3 (4.0-10.0)
[2023-12-11] MEDS: KETOROLAC TROMETHAMINE 15 MG/ML VIAL IVPUSH ONE (15:39)
[2023-12-11] MEDS: LACTATED RINGERS SOLUTION 1000 ML INFUS.BAG IV ONE (15:39)
[2023-12-11 15:58] LABS: THROAT:GRP A STREP NOT DETECTED (NOTDETECTED)
[2023-12-11 15:59] LABS: POTASSIUM 3.7 mmol/L (3.5-5.1)
[2023-12-11 16:01] LABS: ALBUMIN 3.4 g/dl (3.4-5.0); CALCIUM 9.2 mg/dL (8.5-10.1)
[2023-12-11 16:02] LABS: BLOOD UREA NITROGEN 7.5 mg/dL (7-18)
[2023-12-11 16:05] LABS: CREATININE 0.7 mg/dL (0.55-1.3)
[2023-12-11 16:06] LABS: BILIRUBIN,TOTAL 0.6 mg/dL (0.2-1)
[2023-12-11 16:27] VITALS: BP 136/79; PULSE 76; RESP 20
== END 2023-12-11 16:32 | disposition home or self-care (01) ==
LOC: JER 14:24
PROC: 3E0333Z Introduction of Anti-inflammatory into Peripheral Vein, Percutaneous Approach (ICD-10-PCS; principal; 2023-12-11)
DX: M79.10 Myalgia, unspecified site (principal); R53.83 Other fatigue; M25.512 Pain in left shoulder; M25.511 Pain in right shoulder; R53.1 Weakness; B34.9 Viral infection, unspecified; Z20.822 Contact with and (suspected) exposure to COVID-19
CPT/HCPCS: 0241U-QW; 36415; 80053; 83735; 85025; 87651; 99284-25

== ENCOUNTER 2023-12-21 16:51 | Emergency (ER) | payer OTHER ==
[2023-12-21 17:01] VITALS: RESP 20; BMI 41.5
[2023-12-21] MEDS ORDERED: ACETAMINOPHEN 500 MG TABLET (FP) ONE (20:51)
[2023-12-21] MEDS: ACETAMINOPHEN 500 MG TABLET (FP) PO ONE (20:55)
[2023-12-21 21:00] VITALS: BP 123/80; PULSE 93; TEMP 98.9
[2023-12-21] MEDS ORDERED: ONDANSETRON *ODT* 4 MG TABLET ONE (21:00)
[2023-12-21] MEDS: ONDANSETRON *ODT* 4 MG TABLET SL ONE (21:02)
== END 2023-12-21 21:02 | disposition home or self-care (01) ==
LOC: JER 16:51 → JERFT 16:51
DX: R05.9 Cough, unspecified (principal); R11.0 Nausea; M79.10 Myalgia, unspecified site; R19.7 Diarrhea, unspecified; J06.9 Acute upper respiratory infection, unspecified; Z20.822 Contact with and (suspected) exposure to COVID-19
CPT/HCPCS: 0241U-QW; 71046-TC-FY; 87651; 99283-25

== ENCOUNTER 2024-04-24 10:22 | Emergency (ER) | payer OTHER ==
[2024-04-24 10:40] VITALS: BP 117/85; PULSE 77; RESP 18; TEMP 98.6; BMI 40.7
[2024-04-24 13:25] LABS: PH,URINE 5.5 (5.0-8.0); URINE APPEARANCE CLEAR; URINE BILIRUBIN NEGATIVE (NEGATIVE); URINE COLOR YELLOW; URINE GLUCOSE (UA) NEGATIVE (NEGATIVE); URINE KETONE NEGATIVE (NEGATIVE); URINE LEUK ESTERASE NEGATIVE (NEGATIVE); URINE NITRITE NEGATIVE (NEGATIVE); URINE PROTEIN NEGATIVE (NEGATIVE); URINE UROBILINOGEN 0.2 mg/dL (0.2-1.0)
[2024-04-24] MEDS ORDERED: LIDOCAINE 5% TOPICAL PATCH ONE (13:35)
[2024-04-24] MEDS ORDERED: KETOROLAC TROMETHAMINE 30 MG/1 ML VIAL ONE (13:41)
[2024-04-24] MEDS: KETOROLAC TROMETHAMINE 30 MG/1 ML VIAL IM ONE (13:54)
[2024-04-24] MEDS: LIDOCAINE 5% TOPICAL PATCH TP ONE (13:54)
[2024-04-24] MEDS ORDERED: CYCLOBENZAPRINE HCL 10 MG TABLET (FP) ONE (13:55)
[2024-04-24] MEDS: CYCLOBENZAPRINE HCL 10 MG TABLET (FP) PO ONE (13:58)
[2024-04-24] MEDS ORDERED: LIDOCAINE PATCH REMOVAL MC SCH (22:00)
== END 2024-04-24 16:06 | disposition home or self-care (01) ==
LOC: JER 10:22
PROC: 3E0133Z Introduction of Anti-inflammatory into Subcutaneous Tissue, Percutaneous Approach (ICD-10-PCS; principal; 2024-04-24)
DX: S39.012A Strain of muscle, fascia and tendon of lower back, initial encounter (principal); J01.90 Acute sinusitis, unspecified; R51.9 Headache, unspecified; X58.XXXA Exposure to other specified factors, initial encounter
CPT/HCPCS: 81003; 87086; 99284-25